=== PATIENT | female | born 1970 | race Caucasian/White ===

== ENCOUNTER 2017-03-04 21:35 | Emergency (ER) | payer OTHER, BC ==
[2017-03-04 21:53] VITALS: BP 126/73; PULSE 86; TEMP 98.5; BMI 29.8
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
[2017-03-04] MEDS ORDERED: KETOROLAC TROMETHAMINE 60 MG/2 ML VIAL IM ONE (23:07)
[2017-03-04] MEDS ORDERED: KETOROLAC TROMETHAMINE 60 MG/2 ML VIAL ONE (23:14)
--- NOTE | 2017-03-05 08:03 | PDOC ---
*Physical Exam - Vital Signs Last Vital Signs Temp Pulse Resp BP Pulse Ox 98.5 F 86 16 126/73 100 03/04/17 21:41 03/04/17 21:41 03/04/17 21:41 03/04/17 21:41 03/04/17 21:41 ED Treatment Course - ADDITIONAL ORDERS Additional order review: Laboratory Results 03/04/17 22:30 Urine HCG, Qual Negative - Medications Given in the ED: ED Medications Discontinued Medications Generic Name Dose Route Start Last Admin Trade Name Marielle PRN Reason Stop Dose Admin Ketorolac Tromethamine 60 mg 03/04/17 23:07 03/04/17 23:18 Toradol Injection - IM 03/04/17 23:08 60 mg ONCE ONE Administration Progress Note - Progress Note Progress Note: Spoke to pt to return for more cervical spine views. Pt is still in pain. Radiologist states study is in complete. Pt will return. *DC/Admit/Observation/Transfer Diagnosis at time of Disposition: Cervical strain Qualifiers: Encounter type: initial encounter Qualified Code(s): S16.1XXA - Strain of muscle, fascia and tendon at neck level, initial encounter - Discharge Dispostion Disposition: HOME Condition at time of disposition: Stable - Prescriptions Prescriptions: Ibuprofen [Motrin -] 600 mg PO TID #20 tablet Alprazolam [Xanax] 0.5 mg PO BID PRN #4 tablet MDD 2 tabs PRN Reason: Anxiety - Referrals - Patient Instructions Printed Discharge Instructions: DI for Cervical Muscle Strain Additional Instructions: ice for 24 hours, then local warmth to area soft collar as needed motrin 600mg up to 3 times a day as needed for pain (take with food) Xanax 0.5 mg up to twice a day for anxiety Return to ER if you have severe pain/persistent headache/nausea or lightheadedness Follow-up with your spine surgeon if you have persistent neck pain Follow-up with Dr. Valencia within the next week - Post Discharge Activity
== END 2017-03-04 23:25 | disposition home or self-care (01) ==
LOC: FER 21:35
PROC: 3E0233Z Introduction of Anti-inflammatory into Muscle, Percutaneous Approach (ICD-10-PCS; principal; 2017-03-04)
DX: S16.1XXA Strain of muscle, fascia and tendon at neck level, initial encounter (principal); V43.52XA Car driver injured in collision with other type car in traffic accident, initial encounter; Y93.89 Activity, other specified; Y92.410 Unspecified street and highway as the place of occurrence of the external cause; K21.9 Gastro-esophageal reflux disease without esophagitis; E03.9 Hypothyroidism, unspecified; E55.9 Vitamin D deficiency, unspecified
CPT/HCPCS: 72050-TC; 84703; 99281-25

== ENCOUNTER 2017-04-16 01:41 | Emergency (ER) | payer BC ==
--- NOTE | 2017-04-16 01:45 | PDOC ---
History of Present Illness - General Chief Complaint: Pain, Acute Stated Complaint: ABDOMINAL PAIN X 1 1/2 WEEKS Time Seen by Provider: 04/16/17 01:44 - History of Present Illness Initial Comments: This 46-year-old woman , s/p abdominoplasty 12/26/[address] Gordon, presents with approximately one week history of discomfort and swelling below her lower abdominal incision. Patient denies trauma or overuse involving abdominal muscles prior to development of the swelling. She states that she is relatively comfortable at rest but with movement she has pain in the area. She denies fever/chills, redness or increased warmth to the area of swelling. Patient states that she periodically needed drainage of fluid accumulation after her procedure but it has not had the need in several weeks. She has not used her abdominal binder in the last month after being told by Dr. Gordon to discontinue wearing. She attempted to call Dr. Gordon last week but was unable to contact him and then went away for vacation for a few days. Patient is currently on omeprazole for GERD; she was placed on omeprazole by her PMD a few weeks ago because of increased epigastric and mid chest pain after eating. Past History - Past Medical History Allergies/Adverse Reactions: Allergies Allergy/AdvReac Type Severity Reaction Status Date / Time No Known Allergies Allergy Verified 04/16/17 01:43 Home Medications: Ambulatory Orders Levothyroxine [Synthroid -] 50 mcg PO DAILY@0700 tablet 07/05/16 Phentermine HCl 37.5 mg PO DAILY 12/20/16 Omeprazole 20 mg PO DAILY 04/16/17 Anemia: (VIT. D DEFICIENCY) Asthma: No Cancer: No Cardiac Disorders: No CVA: No COPD: No CHF: No Dementia: No Diabetes: No GI Disorders: Yes (GERD) Disorders: No HTN: No Hypercholesterolemia: No Liver Disease: No Seizures: No Thyroid Disease: Yes - Surgical History Abdominal Surgery: Yes (Laparoscopic Right Oopherectomy) Appendectomy: Yes Cardiac Surgery: No Cholecystectomy: No Lung Surgery: No Neurologic Surgery: Yes (LUMBAR DISCECTOMY) Orthopedic Surgery: Yes (LAMINECTOMY,Spinal Fusion 08/2016) - Immunization History Immunization Up to Date: Yes - Psycho/Social/Smoking Cessation Hx Anxiety: No Suicidal Ideation: No Smoking Status: No Smoking History: Never smoked Years of Tobacco Use: 0 Have you smoked in the past 12 months: No Number of Cigarettes Smoked Daily: 0 Cigars Per Day: 0 Hx Alcohol Use: No Drug/Substance Use Hx: No Substance Use Type: None Hx Substance Use Treatment: No Review of Systems - Review of Systems Able to Perform ROS?: Yes Comments:: 12 point review of systems is negative except for what is noted in the history of present illness *Physical Exam - Physical Exam Comments: GENERAL: Adult female, alert and oriented 3, in no acute distress HEAD: Normal with no signs of trauma. EYES: PERRLA, EOMI, sclera anicteric, conjunctiva clear. ENT: Ears normal, nares patent, oropharynx clear without exudates. Dry mucous membranes. NECK: Normal range of motion, supple without lymphadenopathy, JVD, or masses. LUNGS: Breath sounds equal, clear to auscultation bilaterally. No wheezes, and no crackles. HEART:Regular rate and rhythm, normal S1 and S2 without murmur, rub or gallop. ABDOMEN:.normal bowel sounds No guarding or rebound.No masses No distention. Well-healed horizontal lower abdominal incision; edema, moderately tender proximal to length of incision (left side > right) No erythema/fluctuance/increased warmth of the area of edema; no discharge noted from incision EXTREMITIES: Normal range of motion, no edema. No clubbing or cyanosis. No erythema, or tenderness. NEUROLOGICAL: Cranial nerves II through XII grossly intact. Normal speech. No focal neurological deficits. MUSCULOSKELETAL: Back non-tender to palpation, no CVA tenderness SKIN: Warm, Dry, normal turgor, no rashes or lesions noted. Medical Decision Making - Medical Decision Making 46-year-old woman who is 3-1/2 months s/p abdominoplasty presents with a week of mildly to moderately tender, edematous area proximal to her lower abdominal incision. This area extends the length of the incision but is somewhat more tender and more prominent on the left side of the incision. The incision itself is intact, appears to be healing well and without drainage. There is no area that appears to be acutely inflamed: No erythema/no increased warmth. There is no fluctuance palpable. Clinical presentation most consistent with small collection of fluid in the subcutaneous tissues. Since there is no evidence of cellulitis/abscess, no antibiotics will be started. The patient has been advised to call Dr. Gordon's office in the morning to arrange follow-up in the near future. Meanwhile, she should wear her abdominal binder. Toradol 60 mg IM will be given now. *DC/Admit/Observation/Transfer Diagnosis at time of Disposition: S/P abdominoplasty - Discharge Dispostion Disposition: HOME Condition at time of disposition: Stable - Referrals Referrals: Feliz Gordon MD [Primary Care Provider] - Call tomorrow - Patient Instructions Additional Instructions: Wear abdominal binder until seen by Dr. Gordon Call Dr. Gordon's office tomorrow for follow-up within the next 2 days Take GERD medications as prescribed Return to ER immediately if you have fever/chills or area becomes red/warm to touch
[2017-04-16 01:52] VITALS: BP 125/71; PULSE 86; TEMP 98.3; BMI 32.8
[2017-04-16] MEDS ORDERED: KETOROLAC TROMETHAMINE 60 MG/2 ML VIAL IM ONE (02:01)
[2017-04-16] MEDS ORDERED: KETOROLAC TROMETHAMINE 60 MG/2 ML VIAL ONE (02:02)
== END 2017-04-16 02:11 | disposition home or self-care (01) ==
LOC: FER 01:41
PROC: 3E0233Z Introduction of Anti-inflammatory into Muscle, Percutaneous Approach (ICD-10-PCS; principal; 2017-04-16)
DX: Z98.890 Other specified postprocedural states (principal); K21.9 Gastro-esophageal reflux disease without esophagitis; E07.9 Disorder of thyroid, unspecified
CPT/HCPCS: 99281-25

== ENCOUNTER 2017-12-27 23:35 | Emergency (ER) | payer BC ==
[2017-12-27 23:41] VITALS: BP 122/89; PULSE 98; TEMP 98.1; BMI 32.5
--- NOTE | 2017-12-28 00:15 | PDOC ---
History of Present Illness - General Chief Complaint: Pain, Acute Stated Complaint: LUQ PAIN Time Seen by Provider: 12/27/17 23:38 - History of Present Illness Initial Comments: 12/28/17 00:35 This 47-year-old woman with a history of hypothyroidism, chronic back pain/ multiple back procedures and GERD presents with a one-day history of left-sided abdominal pain. Patient states that she awakened with pain of the left upper quadrant, worse with breathing and movement. She denies nausea/vomiting, fever/ chills. She has had decreased appetite today . Last bowel movement was yesterday and was normal (patient has a history of chronic constipation). No history of trauma/overuse of abdominal muscles. No history of cough, shortness of breath, chest wall trauma. Patient states that she had a colonoscopy 2 years ago and was told that was all normal. The patient has Percocet at home for her chronic back pain: She took a tablet earlier for the abdominal pain; minimal relief of abdominal pain obtained. Past History - Past Medical History Allergies/Adverse Reactions: Allergies Allergy/AdvReac Type Severity Reaction Status Date / Time No Known Allergies Allergy Verified 04/16/17 01:43 Home Medications: Ambulatory Orders Levothyroxine [Synthroid -] 50 mcg PO DAILY@0700 tablet 07/05/16 Phentermine HCl 37.5 mg PO DAILY 12/20/16 Omeprazole 20 mg PO DAILY 04/16/17 Oxycodone HCl/Acetaminophen [Percocet 10-325 mg Tablet] 1 each PO PRN 12/28/17 Anemia: (VIT. D DEFICIENCY) Asthma: No Cancer: No Cardiac Disorders: No CVA: No COPD: No CHF: No Dementia: No Diabetes: No GI Disorders: Yes (GERD) Disorders: No HTN: No Hypercholesterolemia: No Liver Disease: No Seizures: No Thyroid Disease: Yes - Surgical History Abdominal Surgery: Yes (Laparoscopic Right Oopherectomy) Appendectomy: Yes Cardiac Surgery: No Cholecystectomy: No Lung Surgery: No Neurologic Surgery: Yes (LUMBAR DISCECTOMY) Orthopedic Surgery: Yes (LAMINECTOMY,Spinal Fusion 08/2016) - Immunization History Immunization Up to Date: Yes - Suicide/Smoking/Psychosocial Hx Smoking Status: No Smoking History: Never smoked Years of Tobacco Use: 0 Have you smoked in the past 12 months: No Number of Cigarettes Smoked Daily: 0 Cigars Per Day: 0 Information on smoking cessation initiated: No Hx Alcohol Use: No Drug/Substance Use Hx: No Substance Use Type: None Hx Substance Use Treatment: No Review of Systems - Review of Systems Able to Perform ROS?: Yes Comments:: 12 point review of systems is negative except for what is noted in the history of present illness *Physical Exam - Vital Signs Last Vital Signs Temp Pulse Resp BP Pulse Ox 98.1 F 98 H 14 122/89 100 12/27/17 23:39 12/27/17 23:39 12/27/17 23:39 12/27/17 23:39 12/27/17 23:39 - Physical Exam Comments: GENERAL: Adult female, alert and oriented 3, in no acute distress HEAD: Normal with no signs of trauma. EYES: PERRLA, EOMI, sclera anicteric, conjunctiva clear. ENT: Ears normal, nares patent, oropharynx clear without exudates. Dry mucous membranes. NECK: Normal range of motion, supple without lymphadenopathy, JVD, or masses. LUNGS: Breath sounds equal, clear to auscultation bilaterally. No wheezes, and no crackles. HEART:Regular rate and rhythm, normal S1 and S2 without murmur, rub or gallop. ABDOMEN:.normal bowel sounds. Marked left upper quadrant/left mid abdominal tenderness.minimal rebound tenderness . No masses No distention. EXTREMITIES: Normal range of motion, no edema. No clubbing or cyanosis. No erythema, or tenderness. NEUROLOGICAL: Cranial nerves II through XII grossly intact. Normal speech. No focal neurological deficits. MUSCULOSKELETAL: Back non-tender to palpation, no CVA tenderness SKIN: Warm, Dry, normal turgor, no rashes or lesions noted. ED Treatment Course - LABORATORY CBC & Chemistry Diagram: 12/28/17 00:45 12/28/17 00:45 Progress Note - Progress Note Progress Note: Laboratory evaluation is essentially normal. Abdominal/pelvic CT performed to rule out acute process such as acute diverticulitis/UPJ stone. Preliminary interpretation by Imaging business continuity planner reveals no evidence of acute process in the abdomen or pelvis. Because patient has had an abdominoplasty within the last year, it is possible that pain is of abdominal wall origin. She is had significant relief in her pain after IV Toradol and continues to be more comfortable than when she presented to the ER. She has not developed any new symptoms. Patient will be discharged with instructions to apply warm compresses to her abdominal wall around the area of pain; ibuprofen/acetaminophen as/naproxen can be used as needed for pain. She should return if she has persistent severe pain or develops fever/vomiting. Otherwise, she should follow-up with Dr. martell within the next several days. *DC/Admit/Observation/Transfer Diagnosis at time of Disposition: Abdominal wall pain in left upper quadrant - Discharge Dispostion Disposition: HOME Condition at time of disposition: Stable - Referrals Referrals: Wendy Valencia MD [Primary Care Provider] - 24 hours - Patient Instructions Printed Discharge Instructions: DI for Abdominal Pain-Adult Additional Instructions: Local warmth to abdominal wall Continue naproxen/acetaminophen/ibuprofen as needed for pain Return to ER if you have vomiting or fever Follow-up with within for 24 hours if you have persistent mild pain - Post Discharge Activity
[2017-12-28] MEDS ORDERED: KETOROLAC TROMETHAMINE 30 MG/1 ML VIAL IVPUSH ONE (00:16)
[2017-12-28] MEDS ORDERED: SODIUM CHLORIDE 1,000 ML IV STA (00:16)
[2017-12-28] MEDS ORDERED: KETOROLAC TROMETHAMINE 30 MG/1 ML VIAL ONE (00:21)
[2017-12-28 01:48] LABS: BASO % 1.1 % (0-2.0); EOS % 2.2 % (0-4.5); HEMATOCRIT 32.5 % (32.4-45.2); HEMOGLOBIN 10.5 GM/dL (10.7-15.3); LYMPH % 26.6 % (8-40); MCH 24.1 pg (25.7-33.7); MCHC 32.4 g/dl (32.0-36.0); MEAN CELL VOLUME 74.3 fl (80-96); MEAN PLT VOLUME 8.8 fl (7.5-11.1); MONO % 7.9 % (3.8-10.2); NEUT % 62.2 % (42.8-82.8); PLATELET COUNT 359 K/MM3 (134-434); RBC 4.38 M/mm3 (3.60-5.2); RDW 17.3 % (11.6-15.6); WHITE BLOOD COUNT 8.3 K/mm3 (4.0-10.0)
[2017-12-28 02:12] LABS: URINE APPEARANCE CLEAR; URINE BILIRUBIN NEGATIVE (NEGATIVE); URINE BLOOD NEGATIVE (NEGATIVE); URINE COLOR YELLOW; URINE GLUCOSE (UA) NEGATIVE (NEGATIVE); URINE KETONE TRACE (NEGATIVE); URINE LEUK ESTERASE NEGATIVE (NEGATIVE); URINE NITRITE NEGATIVE (NEGATIVE)
[2017-12-28 02:20] LABS: ALBUMIN 4.1 g/dl (3.4-5.0); ALK PHOS 108 U/L (45-117); ANION GAP 11 (8-16); BILIRUBIN,TOTAL 0.4 mg/dL (0.2-1.0); BLOOD UREA NITROGEN 18 mg/dL (7-18); CALCIUM 8.7 mg/dL (8.5-10.1); CHLORIDE 103 mmol/L (98-107); CO2 26 mmol/L (21-32); CREATININE 0.7 mg/dL (0.55-1.02); GLUCOSE,RANDOM 98 mg/dL (74-106); POTASSIUM 3.6 mmol/L (3.5-5.1); SGOT/AST 16 U/L (15-37); SGPT/ALT 34 U/L (12-78); SODIUM 140 mmol/L (136-145)
[2017-12-28 02:21] LABS: URINE PROTEIN 1+ (NEGATIVE)
[2017-12-28 02:23] LABS: EPI CELLS RARE /HPF (FEW); URINE BACTERIA RARE /hpf (NONE SEEN); URINE HYALINE CAST 7 /lpf; URINE MUCUS MANY
[2017-12-28] MEDS ORDERED: KETOROLAC TROMETHAMINE 15 MG/ML VIAL IVPUSH ONE (03:23)
[2017-12-28] MEDS ORDERED: KETOROLAC TROMETHAMINE 15 MG/ML VIAL ONE (03:24)
== END 2017-12-28 03:29 | disposition home or self-care (01) ==
LOC: FER 23:35
PROC: 3E0337Z Introduction of Electrolytic and Water Balance Substance into Peripheral Vein, Percutaneous Approach (ICD-10-PCS; principal; 2017-12-27)
PROC: 3E0333Z Introduction of Anti-inflammatory into Peripheral Vein, Percutaneous Approach (ICD-10-PCS; 2017-12-27)
DX: R10.12 Left upper quadrant pain (principal)
CPT/HCPCS: 36415; 74176-TC; 80053; 81003; 81015; 84703; 85025; 99283-25; J7030

== ENCOUNTER 2018-01-25 05:14 | Day surgery (SDC) | payer BC ==
[2018-01-24 13:12] VITALS: BMI 33.7
[2018-01-25 09:15] VITALS: TEMP 98.1
[2018-01-25 13:37] VITALS: BP 129/74; PULSE 78
== END 2018-01-25 12:50 | disposition home or self-care (01) ==
LOC: JASU-SURG 05:14
PROVIDERS: ATTEND Obstetrics & Gynecology
PROC: 0U5B8ZZ Destruction of Endometrium, Via Natural or Artificial Opening Endoscopic (ICD-10-PCS; principal; 2018-01-25)
DX: N92.0 Excessive and frequent menstruation with regular cycle (principal); D64.9 Anemia, unspecified
CPT/HCPCS: 84703; 94760

== ENCOUNTER 2018-03-04 14:00 | Emergency (ER) | payer BC ==
--- NOTE | 2018-03-04 14:14 | PDOC ---
History of Present Illness - General History Source: Patient Exam Limitations: No Limitations - History of Present Illness Initial Comments: 03/04/18 14:30 The patient is a 47 year old female, with a significant past medical history of hypothyroidism, chronic back pain/multiple back procedures, and GERD, who presents to the emergency department with, 3 days of sudden onset neck pain. She describes her pain as constant, radiating to her ear, and localized to her left side. The patient reports decreased range of motion. She reports taking Motrin and Aleve with minimal relief. She believes the symptoms onset due to her air conditioner. She reports an associated mild sore throat. She denies any recent injury. She denies recent fevers, chills, headache or dizziness. She denies recent nausea, vomit, diarrhea or constipation. She denies recent dysuria, frequency, urgency or hematuria. She denies recent chest pain or shortness of breath. Allergies: NKA Social history: Nonsmoker. Denies EtOH use and recreational drug use. Primary Care Physician: Dr. Valencia <Michael Lin - Last Filed: 03/04/18 14:30> <Kenji Randle - Last Filed: 03/04/18 14:34> - General Chief Complaint: Pain Stated Complaint: NECK, LEFT EAR PAIN Time Seen by Provider: 03/04/18 14:13 Past History <Michael Lin - Last Filed: 03/04/18 14:30> - Past Medical History Anemia: (VIT. D DEFICIENCY) Asthma: No Cancer: No Cardiac Disorders: No CVA: No COPD: No CHF: No Dementia: No Diabetes: No GI Disorders: Yes (GERD) Disorders: No HTN: No Hypercholesterolemia: No Liver Disease: No Seizures: No Thyroid Disease: Yes - Surgical History Abdominal Surgery: Yes (Laparoscopic Right Oopherectomy) Appendectomy: Yes Cardiac Surgery: No Cholecystectomy: No Lung Surgery: No Neurologic Surgery: Yes (LUMBAR DISCECTOMY) Orthopedic Surgery: Yes (LAMINECTOMY,Spinal Fusion 08/2016) - Immunization History Immunization Up to Date: Yes - Suicide/Smoking/Psychosocial Hx Smoking Status: No Smoking History: Never smoked Years of Tobacco Use: 0 Have you smoked in the past 12 months: No Number of Cigarettes Smoked Daily: 0 Cigars Per Day: 0 Hx Alcohol Use: No Drug/Substance Use Hx: No Substance Use Type: None Hx Substance Use Treatment: No <Kenji Randle - Last Filed: 03/04/18 14:34> - Past Medical History Allergies/Adverse Reactions: Allergies Allergy/AdvReac Type Severity Reaction Status Date / Time No Known Allergies Allergy Verified 03/04/18 14:08 Home Medications: Ambulatory Orders Levothyroxine [Synthroid -] 50 mcg PO DAILY@0700 tablet 07/05/16 Phentermine HCl 37.5 mg PO DAILY 12/20/16 Cyclobenzaprine HCl [Flexeril 10 mg] 10 mg PO TID PRN #9 tablet 03/04/18 Ibuprofen [Motrin -] 600 mg PO QID PRN 03/04/18 Rabeprazole Sodium [Aciphex] 20 mg PO DAILY 03/04/18 Review of Systems - Review of Systems Constitutional: No: Symptoms Reported, See HPI, Chills, Diaphoresis, Fever, Loss of Appetite, Malaise, Night Sweats, Weakness, Weight Stable, Unintentional Wgt. Loss, Unexplained wgt Loss, Other HEENTM: Yes: Ear Pain, Throat Pain (Mild.) Respiratory: No: Symptoms reported, See HPI, Cough, Orthopnea, Shortness of Breath, SOB with Exertion, SOB at Rest, Stridor, Wheezing, Productive cough, Hemoptysis, Other Cardiac (ROS): No: Symptoms Reported, See HPI, Chest Pain, Edema, Irregular Heart Rate, Lightheadedness, Palpitations, Syncope, Chest Tightness, Other ABD/GI: No: Symptoms Reported, See HPI, Abdominal Distended, Abd. Pain w/ defecation, Blood Streaked Bowels, Constipated, Diarrhea, Difficulty Swallowing , Nausea, Poor Appetite, Poor Fluid Intake, Rectal Bleeding, Vomiting, Indigestion, Abdominal cramping, Tarry Stools, Other : No: Symptoms Reported, See HPI, Burning, Dysuria, Discharge, Frequency, Flank Pain, Hematuria, Incontinence, Pain, Urgency, Testicular Mass, Testicular Swelling, Lesions, Testicular Pain, Other Integumentary: No: Symptoms Reported, See HPI, Bruising, Change in Color, Change in Hair/Nails, Dryness, Erythema, Flushing, Lesions, Lumps, Pallor, Pruritus, Rash, Sweating, Other Neurological: No: Symptoms reported, See HPI, Headache, Numbness, Paresthesia, Pre-Existing Deficit, Seizure, Tingling, Tremors, Weakness, Unsteady Gait, Ataxia, Dizziness, Other Psychiatric: No: Anxiety, Depression, Frequent Crying, Stressors, Sleep Pattern Change, Emotional Problems, Mood Swings, Change in Appetite, Other Endocrine: No: Symptoms Reported, See HPI, Excessive Sweating, Flushing, Intolerance to Cold, Intolerance to Heat, Increased Hunger, Increased Thirst, Increased Urine, Unexplained Weight Gain, Unexplained Weight Loss, Change in Weight, Other Hematologic/Lymphatic: No: Symptoms Reported, See HPI, Anemia, Blood Clots, Easy Bleeding, Easy Bruising, Bleeding Diathesis, Lymph Node Abnormalities, Swollen Glands, Other All Other Systems: Reviewed and Negative <Michael Lin - Last Filed: 03/04/18 14:30> *Physical Exam - Vital Signs Last Vital Signs Temp Pulse Resp BP Pulse Ox 99 F 98 H 18 122/69 99 03/04/18 14:00 03/04/18 14:00 03/04/18 14:00 03/04/18 14:00 03/04/18 14:00 - Physical Exam Comments: 03/04/18 14:22 General Appearance: Yes: Appropriately Dressed, Nourished. No: Apparent Distress, Disheveled, Mild Distress, Moderate Distress, Severe Distress, Alcohol on Breath, Intoxicated, Cachetic, Obese, Thin, Other HEENT: positive: EOMI, DOMENICO, Normal ENT Inspection, Normal Voice, TMs Normal, Pharynx Normal. negative: Symmetrical, Pale Conjunctivae, Photophobia, Scleral Icterus (R), Scleral Icterus (L), Muffled/Hoarse voice, Pharyngeal Erythema, Tonsillar Exudate, Tonsillar Erythema, Nasal Congestion, Rhinorrhea, Sinus Tenderness, Orbits, Hearing Decreased, Hearing Grossly Normal, TM Bulging, TM Dull, TM Erythema, Lesions, Cazares, Excessive drooling, Thrush, Other (+)Neck: positive: Tenderness to the left paracervical muscle. Decreased range of motion. Trachea midline, Normal Thyroid, Supple. negative: No spinous tenderness. No meningeal signs. Rigid, Carotid bruit, Stridor, Lymphadenopathy ( R), Lymphadenopathy (L), Rigidity, Tender lateral, Tender midline, Thyromegaly, Other Respiratory/Chest: positive: Lungs Clear, Normal Breath Sounds. negative: Accessory Muscle Use, Chest Tender, Respiratory Distress, Labored Respiration, Rapid RR, Decreased Breath Sounds, Paradoxal Breathing, Crackles, Rales, Rhonchi , Stridor, Wheezing, Dullness, Hyperresonant, Plerual Rub, Other Cardiovascular: positive: Regular Rate, Regular Rhythm, S1, S2. negative: Edema , JVD, Murmur, Bradycardia, Tachycardia, Diastolic Murmur, Systolic Murmur, Gallop/S3, Gallop/S4, Irregularly Irregular, Irregular, Other Vascular Pulses: Femoral (R): 4+, Femoral (L): 4+, Carotid (R): 4+, Carotid (L) : 4+, Dorsalis-Pedis (R): 4+, Doralis-Pedis (L): 4+ Gastrointestinal/Abdominal: positive: Normal Bowel Sounds, Flat, Soft. negative : Tender, Organomegaly, Pulsatile Mass, Increased Bowel Sounds, Decreased BS, Protuberent, Distended, Guarding, Rebound, Tenderness, Hernia, Mass, Hepatomegaly, Spleenomegaly, Other Lymphatic: negative: Adenopathy, Tenderness, Other Musculoskeletal: positive: Normal Inspection. negative: CVA Tenderness, CVA Tenderness (R), CVA Tenderness (L), Vertebral Tenderness, Other Extremity: positive: Normal Capillary Refill, Normal Inspection, Normal Range of Motion. negative: Tender, Pelvis Stable, Coldness, Cyanosis, Delayed Capillary Refill, Pedal Edema, Swelling, Calf Tenderness, Erythema, Inflammation , Other Integumentary: positive: Normal Color, Dry, Warm. negative: Cyanotic, Erythema , Jaundice, Mottled, Pale, Cold, Clammy, Diaphoresis, Moist, Hives, Petechiae, Rash, Swelling, Ecchymosis, Bruising, Other Neurologic: positive: pharmacology associate II-XII NML intact, Fully Oriented, Alert, Normal Mood/ Affect, Normal Response, Motor Strength 5/5. negative: Abnormal Cranial NS, Respond to painful stimul, Responsive, EOM Palsy, Facial Droop, Numbness, Sensory Deficit, Finger to Nose, Confused, Disoriented, Depressed Affect, Babinski, Other <Michael Lin - Last Filed: 03/04/18 14:30> - Vital Signs Last Vital Signs Temp Pulse Resp BP Pulse Ox 99 F 98 H 18 122/69 99 03/04/18 14:00 03/04/18 14:00 03/04/18 14:00 03/04/18 14:00 03/04/18 14:00 <Kenji Randle - Last Filed: 03/04/18 14:34> ED Treatment Course - ADDITIONAL ORDERS Additional order review: 03/04/18 14:29 Pt appears to have a torticollis, pain on left side of paracervical muscles, with no spinous process tenderness. No meningeal signs noted, no fever, incontinence or procedures done. Vitals stable. Will treat with NSAID and Flexeril If worsen return to ER Pt is in agreement with plan 03/04/18 14:33 <Kenji Randle - Last Filed: 03/04/18 14:34> *DC/Admit/Observation/Transfer - Attestations Scribe Attestion: 03/04/18 14:24 Documentation prepared by Michael Lin, acting as medical assisting program director for Kenji Randle MD. <Michael Lin - Last Filed: 03/04/18 14:30> - Discharge Dispostion Decision to Admit order: No <Kenji Randle - Last Filed: 03/04/18 14:34> Diagnosis at time of Disposition: Torticollis - Discharge Dispostion Disposition: HOME Condition at time of disposition: Stable - Prescriptions Prescriptions: Cyclobenzaprine HCl [Flexeril 10 mg] 10 mg PO TID PRN #9 tablet PRN Reason: Pain - Referrals Referrals: Wendy Valencia MD [Primary Care Provider] - - Patient Instructions Printed Discharge Instructions: DI for Torticollis Additional Instructions: Ice, Motrin, rest Flexeril 10 mg 3x/day as needed If worsen return to ER - Post Discharge Activity
[2018-03-04 14:20] VITALS: BP 122/69; PULSE 98; TEMP 99; BMI 31.2
== END 2018-03-04 14:40 | disposition home or self-care (01) ==
LOC: FER 14:00
DX: M43.6 Torticollis (principal); E07.9 Disorder of thyroid, unspecified; K21.9 Gastro-esophageal reflux disease without esophagitis; E55.9 Vitamin D deficiency, unspecified
CPT/HCPCS: 99283-25

== ENCOUNTER 2018-11-04 20:22 | Emergency (ER) | payer OTHER ==
--- NOTE | 2018-11-04 20:29 | PDOC ---
History of Present Illness - History of Present Illness Initial Comments: The patient is a 48 year old female, with a significant past medical history of hypothyroidism, chronic back pain/multiple back procedures, GERD, endometriosis , and seizures who presents to the emergency department with back pain. She states her lower back pain radiates down her legs. She states that she took percocet around 5:30pm with no relief of symptoms. She denies any recent injury. She denies recent fevers, chills, headache or dizziness. She denies recent nausea, vomit, diarrhea or constipation. She denies recent dysuria, frequency, urgency or hematuria. She denies recent chest pain or shortness of breath. Allergies: NKA Social history: Nonsmoker. Denies EtOH use and recreational drug use. Primary Care Physician: Dr. Valencia PAST MEDICAL HISTORY: hypothyroidism, chronic back pain/multiple back procedures, GERD, endometriosis, and seizures PAST SURGICAL HISTORY: spinal fusion (2018), 3 micro lumbar laminectomies FAMILY HISTORY: no pertinent history SOCIAL HISTORY: Pt lives with family and is employed. MEDICATIONS: reviewed ROS General: No fevers or chills, no weakness, no weight loss HEENT: No change in vision. No sore throat, No ear pain Cardiovascular: No chest pain or shortness of breath Respiratory:No cough, or wheezing. Gastrointestinal: No nausea, vomiting, diarrhea or constipation, No rectal bleeding Genitourinary: No dysuria, hematuria, or frequency Musculoskeletal: +back pain Neurologic: No headache, vertigo, dizziness or loss of consciousness Psychiatric: No depression Skin: No rashes or easy bruising Endocrine: No increased thirst or abnormal weight change Allergic: No skin or latex allergy All other systems reviewed and normal PE GENERAL: The patient is awake, alert, and fully oriented, in no acute distress. HEAD: Normal with no signs of trauma. EYES: Pupils equal, round and reactive to light, extraocular movements intact, sclera anicteric, conjunctiva clear. EXTREMITIES: Normal range of motion, no edema. NEUROLOGICAL: Normal speech, normal gait. Back:Wellhead surgical scar over lower lumbar-upper sacral area with some tenderness to palpation, no erythema, no swelling over the area. Also some tenderness on palpation over right sciatic notch. Positive straight leg raise at 45 degrees on right and 90 on left. Neurovascularly intact. PSYCH: Normal mood, normal affect. SKIN: Warm, Dry, normal turgor, no rashes or lesions noted. <Na Rodriguez - Last Filed: 11/04/18 20:50> - General History Source: Patient Exam Limitations: No Limitations - History of Present Illness Initial Comments: 11/04/18 21:14 A portion of this note was documented by scribe services under my direction. I have reviewed the details of the note, within reason, and agree with the documentation with the following case summary and management plan written by me. Patient treated in the ED. Nursing notes are reviewed and incorporated into the medical decision-making. Vital signs reviewed. This is a 48-year-old female who comes in complaining of acute exacerbation of her chronic low back pain. Patient had some surgery approximately year ago and says her back is been much better until yesterday when it developed pain again. Patient said her pain is similar to what she had prior to the surgery and radiates down her right leg. Patient took some pain medication that she had at home without relief so came in for evaluation. Patient medicated with Decadron and Toradol and discharged home. Patient referred to her spine surgeon for follow-up <Stephane Molina I - Last Filed: 11/04/18 21:15> - General Chief Complaint: Pain, Acute Stated Complaint: BACK PAIN Time Seen by Provider: 11/04/18 20:24 Past History <Na Rodriguez - Last Filed: 11/04/18 20:50> - Past Medical History Anemia: (VIT. D DEFICIENCY) Asthma: No Cancer: No Cardiac Disorders: No CVA: No COPD: No CHF: No Dementia: No Diabetes: No GI Disorders: Yes (GERD) Disorders: No HTN: No Hypercholesterolemia: No Liver Disease: No Seizures: No Thyroid Disease: Yes - Surgical History Abdominal Surgery: Yes (Laparoscopic Right Oopherectomy) Appendectomy: Yes Cardiac Surgery: No Cholecystectomy: No Lung Surgery: No Neurologic Surgery: Yes (LUMBAR DISCECTOMY) Orthopedic Surgery: Yes (LAMINECTOMY,Spinal Fusion 08/2016) - Immunization History Immunization Up to Date: Yes - Suicide/Smoking/Psychosocial Hx Smoking Status: No Smoking History: Never smoked Years of Tobacco Use: 0 Have you smoked in the past 12 months: No Number of Cigarettes Smoked Daily: 0 Cigars Per Day: 0 Hx Alcohol Use: No Drug/Substance Use Hx: No Substance Use Type: None Hx Substance Use Treatment: No <Stephane Molina I - Last Filed: 11/04/18 21:15> - Past Medical History Allergies/Adverse Reactions: Allergies Allergy/AdvReac Type Severity Reaction Status Date / Time No Known Allergies Allergy Verified 11/04/18 20:24 Home Medications: Ambulatory Orders Levothyroxine [Synthroid -] 50 mcg PO DAILY@0700 tablet 07/05/16 Rabeprazole Sodium [Aciphex] 20 mg PO DAILY 03/04/18 Cholecalciferol (Vitamin D3) [Vitamin D3 -] 400 unit PO DAILY 11/04/18 Methocarbamol [Robaxin -] 750 mg PO QID #40 tablet 11/04/18 Naproxen 500 mg PO BID #14 tablet 11/04/18 Oxycodone HCl/Acetaminophen [Percocet 5-325 mg Tablet] 1 tab PO Q4H 11/04/18 Review of Systems - Review of Systems Comments:: 11/04/18 20:49 see HPI <Na Rodriguez - Last Filed: 11/04/18 20:50> *Physical Exam - Vital Signs Last Vital Signs Temp Pulse Resp BP Pulse Ox 97.9 F 90 16 142/82 98 11/04/18 20:32 11/04/18 20:32 11/04/18 20:32 11/04/18 20:32 11/04/18 20:32 - Physical Exam Comments: 11/04/18 20:49 see HPI <Na Rodriguez - Last Filed: 11/04/18 20:50> Moderate Sedation - Procedure Monitoring Vital Signs: Procedure Monitoring Vital Signs Temperature 97.9 F 11/04/18 20:32 Pulse Rate 90 11/04/18 20:32 Respiratory Rate 16 11/04/18 20:32 Blood Pressure 142/82 11/04/18 20:32 O2 Sat by Pulse Oximetry (%) 98 11/04/18 20:32 <Na Rodriguez - Last Filed: 11/04/18 20:50> *DC/Admit/Observation/Transfer - Attestations Scribe Attestion: 11/04/18 20:49 Documentation prepared by Na Rodriguez, acting as medical transcription radiology for Stephane Molina MD. <Paulo Rodriguezina - Last Filed: 11/04/18 20:50> - Discharge Dispostion Decision to Admit order: No <Stephane Molina Mary - Last Filed: 11/04/18 21:15> Diagnosis at time of Disposition: Sciatica of right side - Discharge Dispostion Disposition: HOME Condition at time of disposition: Stable - Prescriptions Prescriptions: Methocarbamol [Robaxin -] 750 mg PO QID #40 tablet Naproxen 500 mg PO BID #14 tablet - Referrals Referrals: Wendy Valencia MD [Primary Care Provider] - - Patient Instructions Additional Instructions: I sent a prescription to your pharmacy for a muscle relaxant, Robaxin. Take the Robaxin as often as 4 times a day as needed for pain and spasm. I also sent a prescription to your pharmacy for pain medication naproxen, take one tablet twice a day with food don't take on an empty stomach in addition to the naproxen you can also take 2 extra strength Tylenol as often as every 4-6 hours. Call your back surgeon in the morning and get an appointment for this week if possible, Return to the emergency department immediately with ANY new, persistent or worsening symptoms. Continue any medications as previously prescribed by your physician. You should follow up with your primary doctor as soon as possible regarding today's emergency department visit. . Please make sure your doctor reviews the results of your emergency evaluation. Thank you for coming to the Emergency Department today for your care. It was a pleasure to see you today. Please note that your evaluation is INCOMPLETE until you follow-up with your doctor. - Post Discharge Activity Forms/Work/School Notes: Back to Work
[2018-11-04 20:40] VITALS: BP 142/82; PULSE 90; TEMP 97.9; BMI 32.1
[2018-11-04] MEDS ORDERED: DEXAMETHASONE SOD PHOSPHATE 10 MG/1 ML VIAL IVPUSH ONE (20:41)
[2018-11-04] MEDS ORDERED: KETOROLAC TROMETHAMINE 60 MG/2 ML VIAL IM ONE (20:41)
[2018-11-04] MEDS ORDERED: DEXAMETHASONE SOD PHOSPHATE 10 MG/1 ML VIAL ONE (20:41)
[2018-11-04] MEDS ORDERED: KETOROLAC TROMETHAMINE 60 MG/2 ML VIAL ONE (20:41)
[2018-11-04] MEDS ORDERED: DEXAMETHASONE SOD PHOSPHATE 10 MG/1 ML VIAL IM ONE (20:47)
== END 2018-11-04 20:52 | disposition home or self-care (01) ==
LOC: FER 20:22
PROC: 3E0233Z Introduction of Anti-inflammatory into Muscle, Percutaneous Approach (ICD-10-PCS; principal; 2018-11-04)
PROC: 3E023GC Introduction of Other Therapeutic Substance into Muscle, Percutaneous Approach (ICD-10-PCS; 2018-11-04)
DX: M54.31 Sciatica, right side (principal); E07.9 Disorder of thyroid, unspecified; K21.9 Gastro-esophageal reflux disease without esophagitis
CPT/HCPCS: 99281-25; J1100

== ENCOUNTER 2018-11-14 21:38 | Emergency (ER) | payer OTHER ==
[2018-11-14 21:57] VITALS: TEMP 98.5; BMI 31.8
[2018-11-14 22:32] LABS: PH,URINE 7.5 (4.5-8); URINE APPEARANCE Clear; URINE BILIRUBIN Negative (NEGATIVE); URINE COLOR Yellow; URINE GLUCOSE (UA) Negative (NEGATIVE); URINE KETONE Trace (NEGATIVE); URINE LEUK ESTERASE Negative (NEGATIVE); URINE NITRITE Negative (NEGATIVE); URINE PROTEIN Negative (NEGATIVE)
--- NOTE | 2018-11-14 22:35 | PDOC ---
History of Present Illness - General Chief Complaint: Pain Stated Complaint: RLQ PAIN Time Seen by Provider: 11/14/18 21:40 - History of Present Illness Initial Comments: 11/15/18 00:59 48yo F hx ovarian cysts, endometriosis, , appendectomy presents to the ED with RLQ pain fo 24 hour. Pt reports non-radiating, dull pain that feels like prior ovarian cysts. Reprots pain became constant 6 hours hours prompting her to come to the ED. Denies associated N/V, dysuria, hematuria, frequency, constipation, fevers, chills, vaginal DC. Pt states LMP 2 weeks ago. Has taken home oxycodone with minimal relief of sxs. Pt had normal BM yesterday and is passing flatus. Past History - Past Medical History Allergies/Adverse Reactions: Allergies Allergy/AdvReac Type Severity Reaction Status Date / Time No Known Allergies Allergy Verified 11/04/18 20:24 Home Medications: Ambulatory Orders Levothyroxine [Synthroid -] 50 mcg PO DAILY@0700 tablet 07/05/16 Rabeprazole Sodium [Aciphex] 20 mg PO DAILY 03/04/18 Cholecalciferol (Vitamin D3) [Vitamin D3 -] 400 unit PO DAILY 11/04/18 Methocarbamol [Robaxin -] 750 mg PO QID #40 tablet 11/04/18 Naproxen 500 mg PO BID #14 tablet 11/04/18 Oxycodone HCl/Acetaminophen [Percocet 5-325 mg Tablet] 1 tab PO Q4H 11/04/18 Ketorolac Tromethamine [Toradol] 10 mg PO Q6H #10 tablet 11/15/18 Anemia: (VIT. D DEFICIENCY) Asthma: No Cancer: No Cardiac Disorders: No CVA: No COPD: No CHF: No Dementia: No Diabetes: No GI Disorders: Yes (GERD) Disorders: No HTN: No Hypercholesterolemia: No Liver Disease: No Seizures: No Thyroid Disease: Yes - Surgical History Abdominal Surgery: Yes (Laparoscopic Right Oopherectomy) Appendectomy: Yes Cardiac Surgery: No Cholecystectomy: No Lung Surgery: No Neurologic Surgery: Yes (LUMBAR DISCECTOMY) Orthopedic Surgery: Yes (LAMINECTOMY,Spinal Fusion 08/2016) - Immunization History Immunization Up to Date: Yes - Suicide/Smoking/Psychosocial Hx Smoking Status: No Smoking History: Never smoked Years of Tobacco Use: 0 Have you smoked in the past 12 months: No Number of Cigarettes Smoked Daily: 0 Cigars Per Day: 0 Hx Alcohol Use: No Drug/Substance Use Hx: No Substance Use Type: None Hx Substance Use Treatment: No Review of Systems - Review of Systems Comments:: 11/15/18 01:02 GENERAL/CONSTITUTIONAL: No fever or chills. No weakness. HEAD, EYES, EARS, NOSE AND THROAT: No change in vision. No ear pain or discharge. No sore throat. GASTROINTESTINAL: +RLQ abd pain. No nausea, vomiting, diarrhea or constipation. GENITOURINARY: No dysuria, frequency, or change in urination. CARDIOVASCULAR: No chest pain or shortness of breath. RESPIRATORY: No cough, wheezing, or hemoptysis. MUSCULOSKELETAL: No joint or muscle swelling or pain. No neck or back pain. SKIN: No rash NEUROLOGIC: No headache, vertigo, loss of consciousness, or change in strength/ sensation. ENDOCRINE: No increased thirst. No abnormal weight change. HEMATOLOGIC/LYMPHATIC: No anemia, easy bleeding, or history of blood clots. ALLERGIC/IMMUNOLOGIC: No hives or skin allergy. *Physical Exam - Vital Signs Last Vital Signs Temp Pulse Resp BP Pulse Ox 98.5 F 106 H 18 139/83 100 11/14/18 21:40 11/14/18 21:40 11/14/18 21:40 11/14/18 21:40 11/14/18 21:40 - Physical Exam Comments: 11/15/18 01:04 GENERAL: Awake, alert, and fully oriented, in no acute distress EYES: PERRLA, EOMI, sclera anicteric, conjunctiva clear ENT: Oropharynx clear without exudates. Moist mucosa LUNGS: Breath sounds equal, clear to auscultation bilaterally. No wheezes, and no crackles HEART: Regular rate and rhythm, normal S1 and S2, no murmurs, rubs or gallops ABDOMEN: Soft, +mild RLQ ttp, normoactive bowel sounds. No guarding, no rebound. No masses EXTREMITIES: Normal range of motion, no edema. No clubbing or cyanosis. No cords, erythema, or tenderness NEUROLOGICAL: Normal speech, cranial nerves intact, equal strength and sensation b/l SKIN: Warm, Dry, normal turgor, no rashes or lesions noted. Moderate Sedation - Procedure Monitoring Vital Signs: Procedure Monitoring Vital Signs Temperature 98.5 F 11/14/18 21:40 Pulse Rate 106 H 11/14/18 21:40 Respiratory Rate 18 11/14/18 21:40 Blood Pressure 139/83 11/14/18 21:40 O2 Sat by Pulse Oximetry (%) 100 11/14/18 21:40 ED Treatment Course - LABORATORY CBC & Chemistry Diagram: 11/14/18 22:50 11/14/18 22:50 - ADDITIONAL ORDERS Additional order review: Laboratory Results 11/14/18 11/14/18 22:00 22:00 Urine Color Yellow Urine Appearance Clear Urine pH 7.5 Ur Specific [place] 1.020 Urine Protein Negative Urine Glucose (UA) Negative Urine Ketones Trace Urine Blood Negative Urine Nitrite Negative Urine Bilirubin Negative Urine Urobilinogen 1.0 Ur Leukocyte Esterase Negative Urine HCG, Qual Negative Medical Decision Making - Medical Decision Making 11/15/18 00:50 48yo F hx ovarian cysts, endometriosis, , appendectomy presents to the ED with RLQ pain fo 24 hours. Vitals remarkable initially for elevated HR 106, on my rpt HR 84. Exam with comfortable appearing pt with RLQ ttp, no rebound or guarding. Labs unremarkable. UA/UPT neg. CTAP reveals 3cm R sided ovarian cyst and 2cm L sided ovarian cyst. Pt still getting her period regularly, possible mittel[place]mirtz vs ovarian cyst pain. No concern for torsion as pt is not having waves of significant pain. Pain has improved significantly with tylenol and toradol. 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 I answered all of the patient's questions. The patient was satisfied with the care received and felt comfortable with the discharge plan and treatment plan. The patient will call their primary care physician within 24 hours to arrange follow-up and will return to the Emergency Department with any new, persistent or worsening symptoms. 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 Take the toradol for pain every 6 hours as needed for pain. Do not take aleve, ibuprofen, motrin, advil, or any other NSAID while taking toradol. Return to the emergency department if you have any new, worsening, or concerning symptoms such as sudden worsening pain. - Post Discharge Activity Forms/Work/School Notes: Back to Work - Attestations Physician Attestion: 11/15/18 00:57 I, Dr. Mary Ivory MD, attest that this document has been prepared under my direction and personally reviewed by me in its entirety. I further attest, that it accurately reflects all work, treatment, procedures and medical decision -making performed by me.
[2018-11-14] MEDS ORDERED: ACETAMINOPHEN 1000 MG/100 ML VIAL (NON FORMULARY) IVPB ONE (22:38)
[2018-11-14] MEDS ORDERED: SODIUM CHLORIDE 1,000 ML IV STA (22:38)
[2018-11-14] MEDS ORDERED: ACETAMINOPHEN INJECTION 100 ML IVPB ONE (22:59)
[2018-11-14 23:08] LABS: BASO % 0.8 % (0-2.0); EOS % 1.9 % (0-4.5); HEMATOCRIT 34.8 % (32.4-45.2); HEMOGLOBIN 10.9 GM/dl (10.7-15.3); LYMPH % 24.2 % (8-40); MCH 25.3 pg (25.7-33.7); MCHC 31.2 g/dl (32.0-36.0); MEAN CELL VOLUME 81.2 fl (80-96); MEAN PLT VOLUME 8.3 fl (7.5-11.1); MONO % 10.4 % (3.8-10.2); NEUT % 62.7 % (42.8-82.8); PLATELET COUNT 315 K/MM3 (134-434); RBC 4.29 M/mm3 (3.60-5.2); RDW 15.7 % (11.6-15.6); WHITE BLOOD COUNT 9.4 K/mm3 (4.0-10.8)
[2018-11-14 23:26] LABS: ALBUMIN 3.7 g/dl (3.4-5.0); ALK PHOS 81 U/L (45-117); ANION GAP 6 MMOL/L (8-16); BILIRUBIN,TOTAL 0.6 mg/dl (0.2-1); BLOOD UREA NITROGEN 17 mg/dl (7-18); CALCIUM 8.7 mg/dl (8.5-10); CHLORIDE 105 mmol/L (98-107); CO2 24 mmol/L (21-32); CREATININE 0.6 mg/dl (0.55-1.3); GLUCOSE,RANDOM 116 mg/dl (74-106); POTASSIUM 3.5 mmol/L (3.5-5.1); SGOT/AST 22 U/L (15-37); SGPT/ALT 29 U/L (13-61); SODIUM 135 mmol/L (136-145); TOT PROT 6.6 g/dl (6.4-8.2)
[2018-11-15] MEDS ORDERED: KETOROLAC TROMETHAMINE 30 MG/1 ML VIAL ONE (00:18)
[2018-11-15 00:59] VITALS: BP 127/78; PULSE 89
== END 2018-11-15 01:08 | disposition home or self-care (01) ==
LOC: SUPCPDRO 21:38 → FER 21:38
PROC: 3E033NZ Introduction of Analgesics, Hypnotics, Sedatives into Peripheral Vein, Percutaneous Approach (ICD-10-PCS; principal; 2018-11-14)
PROC: 3E0337Z Introduction of Electrolytic and Water Balance Substance into Peripheral Vein, Percutaneous Approach (ICD-10-PCS; 2018-11-14)
DX: N83.202 Unspecified ovarian cyst, left side (principal); R10.31 Right lower quadrant pain; N83.201 Unspecified ovarian cyst, right side; E55.9 Vitamin D deficiency, unspecified; K21.9 Gastro-esophageal reflux disease without esophagitis
CPT/HCPCS: 36415; 74177-TC; 80053; 81003; 83690; 84703; 85025; 99282-25; J0131; J7030

== ENCOUNTER 2018-12-23 17:51 | Emergency (ER) | payer OTHER ==
[2018-12-23] MEDS ORDERED: MAG HYDROX/AL HYDROX/SIMETH 30 ML UNIT-DOSE CUP PO ONE (18:18)
--- NOTE | 2018-12-23 18:18 | PDOC ---
Rapid Medical Evaluation Time Seen by Provider: 12/23/18 18:15 Medical Evaluation: Allergies Allergy/AdvReac Type Severity Reaction Status Date / Time No Known Allergies Allergy Verified 11/04/18 20:24 12/23/18 18:15 I have performed a brief in-person evaluation of this patient. The patient presents with chief complaint of mid chest pain x 2 hours. Reports worse with deep breathing and moving right shoulder. Described pain as burning sensation. Also reports shortness of breath. Took no medication so far Pertinent physical exam findings NAD even and unlabored breathing, clear bilaterally non tender mid chest, pain exacerbated by movement I have ordered the following ekg, maalox The patient will proceed to the Ed for further evaluation Discharge Disposition - Diagnosis Chest pain - Referrals Referrals: Wendy Valencia MD [Primary Care Provider] - - Patient Instructions - Post Discharge Activity
[2018-12-23 18:19] VITALS: BP 120/82; PULSE 94; TEMP 98.3; BMI 31.2
[2018-12-23] MEDS ORDERED: MAG HYDROX/AL HYDROX/SIMETH 30 ML UNIT-DOSE CUP ONE (18:35)
--- NOTE | 2018-12-23 18:56 | PDOC ---
History of Present Illness - General Chief Complaint: Chest Pain Stated Complaint: Chest Pain Time Seen by Provider: 12/23/18 18:15 History Source: Patient Exam Limitations: No Limitations - History of Present Illness Initial Comments: 12/23/18 18:51 48 yo female pmh of GERD and hypothyroidsm presents to the ED with sudden onset CP today. Pt states she was walking in the grocery store around 4 pm when she felt sudden onset CP described as pressure in the substernal region, non radiating, made worse with deep breathing, laying flat and movement of her right arm, slightly relieved with sitting forward. Pt states this pain is very different from her past episodes of GERD due to the feeling of pressure. Denies N/V/F/C, diaphoresis, new back pain, abdominal pain, calf tenderness, F/C/N/V, changes in bowel or bladder habits Past History - Past Medical History Allergies/Adverse Reactions: Allergies Allergy/AdvReac Type Severity Reaction Status Date / Time No Known Allergies Allergy Verified 12/23/18 18:15 Home Medications: Ambulatory Orders Levothyroxine [Synthroid -] 50 mcg PO DAILY@0700 tablet 07/05/16 Rabeprazole Sodium [Aciphex] 20 mg PO DAILY 03/04/18 Oxycodone HCl/Acetaminophen [Percocet 5-325 mg Tablet] 1 tab PO Q4H PRN Phentermine HCl 37.5 mg PO DAILY 12/23/18 Anemia: (VIT. D DEFICIENCY) Asthma: No Cancer: No Cardiac Disorders: No CVA: No COPD: No CHF: No Dementia: No Diabetes: No GI Disorders: Yes (GERD) Disorders: No HTN: No Hypercholesterolemia: No Liver Disease: No Seizures: No Thyroid Disease: Yes - Surgical History Abdominal Surgery: Yes (Laparoscopic Right Oopherectomy) Appendectomy: Yes Cardiac Surgery: No Cholecystectomy: No Lung Surgery: No Neurologic Surgery: Yes (LUMBAR DISCECTOMY) Orthopedic Surgery: Yes (LAMINECTOMY,Spinal Fusion 08/2016) - Immunization History Immunization Up to Date: Yes - Suicide/Smoking/Psychosocial Hx Smoking Status: No Smoking History: Never smoked Years of Tobacco Use: 0 Have you smoked in the past 12 months: No Number of Cigarettes Smoked Daily: 0 Cigars Per Day: 0 Hx Alcohol Use: No Drug/Substance Use Hx: No Substance Use Type: None Hx Substance Use Treatment: No Review of Systems - Review of Systems Constitutional: No: Chills, Fever Respiratory: No: Cough, Shortness of Breath, Productive cough Cardiac (ROS): Yes: Chest Pain. No: Edema, Lightheadedness, Palpitations, Syncope ABD/GI: No: Constipated, Diarrhea, Nausea, Vomiting : No: Burning, Dysuria, Discharge, Frequency, Flank Pain Musculoskeletal: No: Back Pain Integumentary: No: Change in Color Neurological: No: Headache, Numbness, Paresthesia *Physical Exam - Vital Signs Last Vital Signs Temp Pulse Resp BP Pulse Ox 98.3 F 94 H 17 120/82 100 12/23/18 18:15 12/23/18 18:15 12/23/18 18:15 12/23/18 18:15 12/23/18 18:15 - Physical Exam General Appearance: Yes: Nourished, Appropriately Dressed, Mild Distress ( sitting up in bed satating when she lays back it hurts) HEENT: positive: EOMI, DOMENICO Neck: positive: Supple. negative: Carotid bruit Respiratory/Chest: positive: Lungs Clear, Normal Breath Sounds. negative: Respiratory Distress, Accessory Muscle Use, Crackles, Rales, Rhonchi, Stridor, Wheezing Cardiovascular: positive: Regular Rhythm, Regular Rate, S1, S2. negative: Edema , JVD, Murmur Vascular Pulses: Dorsalis-Pedis (R): 4+, Doralis-Pedis (L): 4+ Gastrointestinal/Abdominal: positive: Flat, Soft. negative: Distended, Guarding , Rebound, Tenderness Musculoskeletal: negative: CVA Tenderness Extremity: positive: Normal Capillary Refill, Normal Inspection Integumentary: positive: Normal Color, Dry, Warm Neurologic: positive: Fully Oriented, Alert, Normal Mood/Affect, Normal Response Moderate Sedation - Procedure Monitoring Vital Signs: Procedure Monitoring Vital Signs Temperature 98.3 F 12/23/18 18:15 Pulse Rate 94 H 12/23/18 18:15 Respiratory Rate 17 12/23/18 18:15 Blood Pressure 120/82 12/23/18 18:15 O2 Sat by Pulse Oximetry (%) 100 12/23/18 18:15 Heart Score/ECG Review - History History: Slightly suspicious - Electrocardiogram EKG: Normal - Age Age: 45-65 - Risk Factors Risk Factors Heart Score: No Hx Hypercholesterolemia, No Hx Hypertension, No Hx Diabetes, No Smoking History, No Positive family hx of cardiac disease, Yes Hx Obesity Based on the list above the patient has:: 1-2 risk factors - Troponin Troponin: </= normal limit - Score Heart Score - Total: 2 - ECG Intrepretation Rhythm: Regular Rhythm - Bantam Bantam: Normal ED Treatment Course - LABORATORY CBC & Chemistry Diagram: 12/23/18 19:00 12/23/18 19:00 - Medications Given in the ED: ED Medications Discontinued Medications Generic Name Dose Route Start Last Admin Trade Name Freq PRN Reason Stop Dose Admin Al Hydroxide/Mg Hydroxide 30 ml 12/23/18 18:18 12/23/18 18:37 Mylanta Oral Suspension - PO 12/23/18 18: 30 ml ONCE ONE Administration Medical Decision Making - Medical Decision Making 12/23/18 21:37 48 yo female presents to the ED with sudden onset CP while walking. No significant cardiac risk factors (heart score 2), PERC and Wells score 0. EKG show NSR without ST changes Vitals show mild tachy with consistent HR in the low 100s DDX INLT: ACS, PE, pericarditis, costochondritis Pt given tylenol, maalox, ranitidine and motrin without much improvement CBC, CMP, Trops, BNP and D dimer WNL CXR negative for acute path Pt requesting to go home and states she will see her PCP tmr Pt stable, NAD, ambulating without increased CP. Pt trop and D dimer negative, non concerning for ACS or PE at this time, likely MSK related pain Pt safe for DC home, understands DC instructions without questions *DC/Admit/Observation/Transfer Diagnosis at time of Disposition: Chest pain - Discharge Dispostion Disposition: HOME Condition at time of disposition: Stable Decision to Admit order: No - Referrals Referrals: Wendy Valencia MD [Primary Care Provider] - - Patient Instructions Printed Discharge Instructions: DI for Atypical Chest Pain Additional Instructions: Please make an appointment to see your primary doctor and see him in the next 48 hours for your chest pain. Take over the counter Motrin as needed for pain every 4-6 hours. Continue taking over the counter Zantac and Maalox for acid reflux along with your home dosed medications. Return to the ER for new or concerning symptoms including but not limited to: persistent chest pain especially with activity, shortness of breath, nausea/vomiting, high fevers. Thank you - Post Discharge Activity
[2018-12-23] MEDS ORDERED: ACETAMINOPHEN 325 MG TABLET (FP) PO ONE (18:57)
[2018-12-23] MEDS ORDERED: RANITIDINE HCL 150 MG TABLET (FP) PO ONE (18:57)
--- NOTE | 2018-12-23 19:03 | PDOC ---
Attending Attestation - HPI HPI: 12/23/18 19:21 The patient is a 48 year old female, with a significant past medical history of GERD and hypothyroidism who presents to the emergency department with sudden onset chest pain 3 hours ago. The patient states she was walking at [employer] at around 4pm at the onset of her symptoms. The patient describes the chest pain as pressure, non radiating, in the substernal region. The patient notes her pain is aggravated with heavy breathing and movement of the R shoulder and alleviated with sitting forward. The patient denies experiencing anything like this in the past. The patient denies any family history of ACS. The patient denies shortness of breath, headache or dizziness. The patient denies fever, chills, nausea, vomit, diarrhea or constipation. The patient denies dysuria, frequency, urgency and hematuria. Allergies: NKdA Past surgical history:Laparoscopic Right Oophorectomy, LUMBAR DISCECTOMY, LAMINECTOMY,Spinal Fusion (08/2016), and Appendectomy Social history: None reported PCP:Dr. Valencia - Physicial Exam PE: 12/23/18 19:23 GENERAL: Awake, alert, and fully oriented, in no acute distress HEAD: No signs of trauma EYES: PERRLA, EOMI, sclera anicteric, conjunctiva clear ENT: Auricles normal inspection, hearing grossly normal, nares patent, oropharynx clear without exudates. Moist mucosa NECK: Normal ROM, supple, no lymphadenopathy, JVD, or masses LUNGS: Breath sounds equal, clear to auscultation bilaterally. No wheezes, and no crackles HEART: Regular rate and rhythm, normal S1 and S2, no murmurs, rubs or gallops ABDOMEN: Soft, nontender, normoactive bowel sounds. No guarding, no rebound. No masses EXTREMITIES: Normal range of motion, no edema. No clubbing or cyanosis. No cords, erythema, or tenderness NEUROLOGICAL: Cranial nerves II through XII grossly intact. Normal speech, normal gait SKIN: Warm, Dry, normal turgor, no rashes or lesions noted. <Prasanna Webster - Last Filed: 12/23/18 19:21> - Resident Resident Name: Balaji Fuentes - ED Attending Attestation I have performed the following: I have examined & evaluated the patient, The case was reviewed & discussed with the resident, I agree w/resident's findings & plan, Exceptions are as noted - Medical Decision Making 12/23/18 22:01 negative troponin cxr napd d dimer negative chemistries unremarkable atypical chest pain plan follow up with Sonia <Brandy Alvarez - Last Filed: 12/23/18 22:01> Attestations - Attestations 12/23/18 19:23 Documentation prepared by Prasanna Webster, acting as medical assembly for Brandy Alvarez MD <Prasanna Webster - Last Filed: 12/23/18 19:21>
[2018-12-23 19:12] LABS: BASO % 1.2 % (0-2.0); EOS % 1.5 % (0-4.5); HEMATOCRIT 38.7 % (32.4-45.2); HEMOGLOBIN 13.2 GM/dL (10.7-15.3); MCH 27.9 pg (25.7-33.7); MCHC 34.1 g/dl (32.0-36.0); MEAN CELL VOLUME 81.9 fl (80-96); MEAN PLT VOLUME 8.5 fl (7.5-11.1); MONO % 8.2 % (3.8-10.2); NEUT % 68.1 % (42.8-82.8); PLATELET COUNT 291 K/MM3 (134-434); RBC 4.73 M/mm3 (3.60-5.2); RDW 17.2 % (11.6-15.6)
[2018-12-23] MEDS ORDERED: RANITIDINE HCL 150 MG TABLET (FP) ONE (19:31)
[2018-12-23] MEDS ORDERED: ACETAMINOPHEN 325 MG TABLET (FP) ONE (19:31)
[2018-12-23 19:52] LABS: ALBUMIN 3.9 g/dl (3.4-5.0); ALK PHOS 106 U/L (45-117); ANION GAP 8 MMOL/L (8-16); BILIRUBIN,TOTAL 0.3 mg/dL (0.2-1); BLOOD UREA NITROGEN 18 mg/dL (7-18); CALCIUM 8.5 mg/dL (8.5-10.1); CHLORIDE 106 mmol/L (98-107); CO2 25 mmol/L (21-32); CREATININE 0.8 mg/dL (0.55-1.3); GLUCOSE,RANDOM 105 mg/dL (74-106); N-TERMINAL BNP < 5.0 pg/ml (5-125); POTASSIUM 4.3 mmol/L (3.5-5.1); SGOT/AST 15 U/L (15-37); SGPT/ALT 30 U/L (13-61); SODIUM 138 mmol/L (136-145); TOT PROT 7.7 g/dl (6.4-8.2)
[2018-12-23] MEDS ORDERED: IBUPROFEN 400 MG TABLET (FP) PO ONE ×2 (21:08→21:21)
--- NOTE | 2018-12-24 10:43 | EKG ---
Test Reason : Blood Pressure : / mmHG Vent. Rate : 101 BPM Atrial Rate : 101 BPM P-R Int : 146 ms QRS Dur : 076 ms QT Int : 350 ms P-R-T Axes : 055 011 028 degrees QTc Int : 453 ms SINUS TACHYCARDIA OTHERWISE NORMAL ECG WHEN COMPARED WITH ECG OF 03-JUL-2016 16:45, NO SIGNIFICANT CHANGE WAS FOUND Confirmed by Perry Chin MD ([id number]) on 12/24/2018 10:42:45 AM Referred By: Confirmed By:Perry Chin MD
== END 2018-12-23 22:06 | disposition home or self-care (01) ==
LOC: JER 17:51
DX: R07.89 Other chest pain (principal); K21.9 Gastro-esophageal reflux disease without esophagitis; E03.9 Hypothyroidism, unspecified
CPT/HCPCS: 36415; 71046-TC-FY; 80053; 82550; 82553; 83880; 84484; 84703; 85025; 85379; 93005; 93010; 99283-25

== ENCOUNTER 2019-06-01 14:28 | Emergency (ER) | payer OTHER ==
[2019-06-01 14:45] VITALS: BP 145/79; PULSE 71; TEMP 98.6; BMI 31.7
--- NOTE | 2019-06-01 15:01 | PDOC ---
History of Present Illness - General Chief Complaint: Pain Stated Complaint: RIGHT SIDED DENTAL AND EAR PAIN Time Seen by Provider: 06/01/19 14:46 History Source: Patient, Significant Other Exam Limitations: No Limitations - History of Present Illness Initial Comments: 06/01/19 14:56 CHIEF COMPLAINT: Right cheek pain since yesterday HISTORY OF PRESENT ILLNESS: 49-year-old female with history of thyroid disease and no other significant medical history. Yesterday, she developed pain in the right cheek which gets worse when biting down on one of her right upper quadrant molars. When she bites down hard, the pain shoots to her right cheek. There is no fever or chills. There is no gum swelling. There is no pain inside the ear. There is no sore throat. REVIEW OF SYSTEMS: No fever or chills No headache No visual changes No ear discharge or pain inside the ears Positive right cheek pain Positive pain in the right upper molars when biting down with radiation to the right cheek No difficulty swallowing Past History - Past Medical History Allergies/Adverse Reactions: Allergies Allergy/AdvReac Type Severity Reaction Status Date / Time No Known Allergies Allergy Verified 06/01/19 14:29 Home Medications: Ambulatory Orders Levothyroxine [Synthroid -] 50 mcg PO DAILY@0700 tablet 07/05/16 Rabeprazole Sodium [Aciphex] 20 mg PO DAILY 03/04/18 Oxycodone HCl/Acetaminophen [Percocet 5-325 mg Tablet] 1 tab PO Q4H PRN #8 tablet MDD 4 06/01/19 Penicillin V Potassium [Pen Vee K -] 500 mg PO QID #28 tablet 06/01/19 Anemia: (VIT. D DEFICIENCY) Asthma: No Cancer: No Cardiac Disorders: No CVA: No COPD: No CHF: No Dementia: No Diabetes: No GI Disorders: Yes (GERD) Disorders: No HTN: No Hypercholesterolemia: No Liver Disease: No Seizures: No Thyroid Disease: Yes - Surgical History Abdominal Surgery: Yes (Laparoscopic Right Oopherectomy) Appendectomy: Yes Cardiac Surgery: No Cholecystectomy: No Lung Surgery: No Neurologic Surgery: Yes (LUMBAR DISCECTOMY, SPINAL FUSION) Orthopedic Surgery: Yes (LAMINECTOMY,Spinal Fusion 08/2016) - Immunization History Immunization Up to Date: Yes - Suicide/Smoking/Psychosocial Hx Smoking Status: No Smoking History: Never smoked Years of Tobacco Use: 0 Have you smoked in the past 12 months: No Number of Cigarettes Smoked Daily: 0 Cigars Per Day: 0 Information on smoking cessation initiated: No Hx Alcohol Use: No Drug/Substance Use Hx: No Substance Use Type: None Hx Substance Use Treatment: No *Physical Exam - Vital Signs Last Vital Signs Temp Pulse Resp BP Pulse Ox 98.6 F 71 16 145/79 98 06/01/19 14:29 06/01/19 14:29 06/01/19 14:29 06/01/19 14:29 06/01/19 14:29 - Physical Exam Comments: 06/01/19 14:58 GENERAL: The patient is awake, alert, and fully oriented, in no acute distress. She is placing her hand on her right cheek due to pain in the maxillary region. HEAD: Normal with no signs of trauma. EYES: Pupils equal, round and reactive to light, extraocular movements intact, sclera anicteric, conjunctiva clear. Orbits normal. ENT: Ears normal, TMs normal bilaterally, nares patent, nasal mucosa normal, oropharynx clear without exudates. Moist mucous membranes. DENTAL: No visible gum swelling, positive tender molars in the right upper quadrant. NECK: Normal range of motion, supple without lymphadenopathy, JVD, or masses. LUNGS: Breath sounds equal, clear to auscultation bilaterally. No wheezes, and no crackles. HEART: Regular rate and rhythm, normal S1 and S2 without murmur, rub or gallop. ABDOMEN: Soft, nontender, normoactive bowel sounds. No guarding, no rebound. No masses. EXTREMITIES: Normal range of motion, no edema. No clubbing or cyanosis. No cords, erythema, or tenderness. NEUROLOGICAL: Cranial nerves II through XII grossly intact. Normal speech, normal gait. PSYCH: Normal mood, normal affect. SKIN: Warm, Dry, normal turgor, no rashes or lesions noted. Medical Decision Making - Medical Decision Making 06/01/19 15:00 49-year-old female with right facial pain in the region of the right maxilla, associated with right upper quadrant tooth pain increased with biting down hard. No visible abscess on exam. No visible caries. No TMJ tenderness, no findings on ear examination. Impression: Probable toothache. Patient to continue nonsteroidals, start penicillin VK 500 4 times a day, 2 day course of Percocet. Patient will see her dentist tomorrow morning, and follow- up with ENT if the dentist cannot solve the issue. No signs of serious infection, and no airway compromise or swelling noted. *DC/Admit/Observation/Transfer Diagnosis at time of Disposition: Toothache, Facial pain, acute - Discharge Dispostion Disposition: HOME Condition at time of disposition: Stable Decision to Admit order: No - Prescriptions Prescriptions: Oxycodone HCl/Acetaminophen [Percocet 5-325 mg Tablet] 1 tab PO Q4H PRN #8 tablet MDD 4 PRN Reason: Severe Pain Penicillin V Potassium [Pen Vee K -] 500 mg PO QID #28 tablet - Referrals Referrals: Wendy Valencia MD [Primary Care Provider] - - Patient Instructions Printed Discharge Instructions: DI for Prescription Opioid Use, DI for Dental Pain Additional Instructions: Today you were evaluated for right cheek pain/facial pain. The most likely cause is dental pain. This could also be caused by trigeminal neuralgia or jaw joint pain. Take penicillin 4 times a day and Percocet as needed for pain. You may take both Aleve as well as Percocet to relieve severe pain. Apply oil of cloves to the sore tooth on the right side of your mouth. Follow-up in the morning with your dentist. Return to the emergency department for any severe symptoms. - Post Discharge Activity
[2019-06-01] MEDS ORDERED: PENICILLIN V POTASSIUM 500 MG TABLET PO ONE (15:07)
== END 2019-06-01 15:25 | disposition home or self-care (01) ==
LOC: FER 14:28
DX: K08.89 Other specified disorders of teeth and supporting structures (principal); G50.1 Atypical facial pain; E07.9 Disorder of thyroid, unspecified
CPT/HCPCS: 99282-25

== ENCOUNTER 2020-04-16 00:12 | Emergency (ER) | payer OTHER ==
[2020-04-16 00:18] VITALS: BP 125/76; PULSE 90; TEMP 98.2; BMI 31.8
--- NOTE | 2020-04-16 00:18 | PDOC ---
History of Present Illness - General Chief Complaint: Back Pain Stated Complaint: BACK PAIN Time Seen by Provider: 04/16/20 00:16 - History of Present Illness Initial Comments: This 49-year-old woman with a history of chronic back pain and multiple back surgeries presents with acute episode of lower back pain. 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 Patient lost her balance and twisted as she fell (did not impact her lower back). Since then, she has had pain in the right lower back/sacroiliac area with radiation into her buttock and posterior upper right thigh. Patient states that she has been taking [id number] nonsteroidal anti-inflammatory medications without significant relief. She already has arranged follow-up with her spinal surgeon on April 19. Past History - Medical History Allergies/Adverse Reactions: Allergies Allergy/AdvReac Type Severity Reaction Status Date / Time No Known Allergies Allergy Verified 06/01/19 14:29 Home Medications: Ambulatory Orders Levothyroxine [Synthroid -] 50 mcg PO DAILY@0700 tablet 07/05/16 Rabeprazole Sodium [Aciphex] 20 mg PO DAILY 03/04/18 Oxycodone HCl/Acetaminophen [Percocet 5-325 mg Tablet] 1 tab PO Q4H PRN #8 tablet MDD 4 06/01/19 Penicillin V Potassium [Pen Vee K -] 500 mg PO QID #28 tablet 06/01/19 Ketorolac Tromethamine [Toradol] 10 mg PO TID PRN #15 tablet 04/16/20 Methylprednisolone [Medrol Dose Kel] 4 mg PO ASDIR #21 tablet 04/16/20 Anemia: (VIT. D DEFICIENCY) Asthma: No Cancer: No Cardiac Disorders: No CVA: No COPD: No CHF: No Dementia: No Diabetes: No GI Disorders: Yes (GERD) Disorders: No HTN: No Hypercholesterolemia: No Liver Disease: No Seizures: No Thyroid Disease: Yes - Surgical History Abdominal Surgery: Yes (Laparoscopic Right Oopherectomy) Appendectomy: Yes Cardiac Surgery: No Cholecystectomy: No Lung Surgery: No Neurologic Surgery: Yes (LUMBAR DISCECTOMY, SPINAL FUSION) Orthopedic Surgery: Yes (LAMINECTOMY,Spinal Fusion 08/2016) - Immunization History Immunization Up to Date: Yes - Psycho-Social/Smoking History Smoking Status: No Smoking History: Never smoked Years of Tobacco Use: 0 Have you smoked in the past 12 months: No Number of Cigarettes Smoked Daily: 0 Cigars Per Day: 0 Review of Systems - Review of Systems Able to Perform ROS?: Yes Comments:: 12 point review of systems is negative except for what is noted in the history of present illness *Physical Exam - Physical Exam GENERAL: Adult female, alert and oriented x3, in mild distress secondary to lower back pain HEAD: Normal with no signs of trauma. EYES: PERRLA, EOMI, sclera anicteric, conjunctiva clear. EXTREMITIES: Normal range of motion, no edema. No clubbing or cyanosis. No erythema, or tenderness. NEUROLOGICAL: Cranial nerves II through XII grossly intact. Normal speech. No focal neurological deficits. MUSCULOSKELETAL: Back-tenderness to palpation right sacroiliac joint area; right paraspinal muscles lower lumbar region Right mid buttock also mildly tender Positive straight leg raising at 45 degrees on the right SKIN: Warm, Dry, normal turgor, no rashes or lesions noted. ED Progress Note - Progress Note Progress Note: This 49-year-old woman with a history of chronic lower back pain and s/p multiple spinal procedures presents with few day history of right lower back/buttock pain with radiating pain in sciatic distribution; this occurred after she fell off of stepstool at home twisting her back. Patient is tried OTC anti-inflammatory medications without relief. Exam as noted Toradol 60 mg IM given. Patient states that, in the past, Toradol tablets were very effective for her. Prescription for Toradol 10 mg up to 3 times a day to be taken with food as needed for back pain sent to her pharmacy. Also, prescription for Medrol dose pack also sent to her pharmacy. The patient will try Toradol first for relief of her pain. If she finds this ineffective, she will stop taking Toradol and begin the Medrol Dosepak. Patient has already arranged follow-up with her spinal surgeon on Sunday, April 19 If she has persistent severe pain or experiences weakness of her leg prior to her follow-up appointment, she should return to the ER Discharge - Discharge Information Problems reviewed: Yes Clinical Impression/Diagnosis: Lower back pain Qualifiers: Chronicity: acute Back pain laterality: right Sciatica presence: with sciatica Sciatica laterality: sciatica of right side Qualified Code(s): M54.41 - Lumbago with sciatica, right side Condition: Stable Disposition: HOME - Additional Discharge Information Prescriptions: Methylprednisolone [Medrol Dose Kel] 4 mg PO ASDIR #21 tablet Ketorolac Tromethamine [Toradol] 10 mg PO TID PRN #15 tablet PRN Reason: Back Pain - Follow up/Referral - Patient Discharge Instructions Patient Printed Discharge Instructions: DI for Low Back Pain Additional Instructions: Rest; avoid strenuous activities No work for the next 2 days Toradol 10 mg up to 3 times a day as needed; take with food If Toradol ineffective for pain, stop and begin Medrol Dosepak;take with food, taper as directed DO NOT take Toradol and Medrol together Follow-up with your spine surgeon on Sunday, April 19 as scheduled Return to ER if you have persistent severe pain - Post Discharge Activity Work/Back to School Note: Back to Work
[2020-04-16] MEDS ORDERED: KETOROLAC TROMETHAMINE 60 MG/2 ML VIAL IM ONE (00:29)
[2020-04-16] MEDS ORDERED: KETOROLAC TROMETHAMINE 60 MG/2 ML VIAL ONE (00:32)
== END 2020-04-16 00:38 | disposition home or self-care (01) ==
LOC: FER 00:12
PROC: 3E0233Z Introduction of Anti-inflammatory into Muscle, Percutaneous Approach (ICD-10-PCS; principal; 2020-04-16)
DX: M54.41 Lumbago with sciatica, right side (principal)
CPT/HCPCS: 99284-25

== ENCOUNTER 2020-04-26 21:27 | Emergency (ER) | payer OTHER ==
[2020-04-26] MEDS ORDERED: KETOROLAC TROMETHAMINE 60 MG/2 ML VIAL IM ONE (21:43)
[2020-04-26] MEDS ORDERED: KETOROLAC TROMETHAMINE 60 MG/2 ML VIAL ONE (22:01)
[2020-04-26 22:13] VITALS: BP 136/84; PULSE 92; TEMP 98.1; BMI 37.2
--- NOTE | 2020-04-27 00:08 | PDOC ---
Documentation entered by Michael Lin SCRIBE, acting as scribe for Roseline Mei MD. Roseline Mei MD: This documentation has been prepared by the Tristen sierra Nirvannie, SCRIBE, under my direction and personally reviewed by me in its entirety. I confirm that the documentation accurately reflects all work, treatment, procedures, and medical decision making performed by me. History of Present Illness - General Chief Complaint: Back Pain Stated Complaint: LOWER BACK PAIN Time Seen by Provider: 04/26/20 21:29 History Source: Patient Exam Limitations: No Limitations - History of Present Illness Initial Comments: 04/26/20 22:11 The patient is a 49 year old female with a significant past medical history of chronic back (s/p multiple back surgeries) who presents to the emergency department with 13 days of persistent lower back pain. As per patient, her back pain was acutely exacerbated approximately 13 days ago at which time she lost her balance twisting her back. Patient was evaluated in the ED 10 days ago for pain in the right lower back/sacroiliac area with radiation into her buttock and posterior upper right thigh and discharged on a Medrol dose pack and Toradol. Patient notes taking a few days off of work since her discharge and being evaluated by her PCP at which time she was given Toradol, without relief. Patient presents to the emergency department today for progressively worsening back with radiation down the right lower extremity. Patient notes associated intermittent paresthesias to the right lower extremity which she attributes to her baseline exacerbations of back pain. She has an appointment with a newspinal surgeon in 3 days and an outpatient MRI scheduled in 4 days. She denies any urinary or bowel incontinence. Allergies: [facility] Primary Care Physician: Dr. Valencia Past History - Medical History Allergies/Adverse Reactions: Allergies Allergy/AdvReac Type Severity Reaction Status Date / Time No Known Allergies Allergy Verified 06/01/19 14:29 Home Medications: Ambulatory Orders Levothyroxine [Synthroid -] 50 mcg PO DAILY@0700 tablet 07/05/16 Rabeprazole Sodium [Aciphex] 20 mg PO DAILY 03/04/18 Oxycodone HCl/Acetaminophen [Percocet 5-325 mg Tablet] 1 tab PO Q4H PRN #8 tablet MDD 4 06/01/19 Penicillin V Potassium [Pen Vee K -] 500 mg PO QID #28 tablet 06/01/19 Ketorolac Tromethamine [Toradol] 10 mg PO TID PRN #15 tablet 04/16/20 Methylprednisolone [Medrol Dose Kel] 4 mg PO ASDIR #21 tablet 04/16/20 Diclofenac Sodium 75 mg PO BID PRN #14 tablet. 04/26/20 Oxycodone HCl/Acetaminophen [Percocet 5-325 mg Tablet] 1 tab PO Q6H PRN #16 tablet MDD 4 tabs 04/26/20 Tizanidine HCl 2 mg PO TID PRN #10 tablet 04/26/20 Anemia: (VIT. D DEFICIENCY) Asthma: No Cancer: No Cardiac Disorders: No CVA: No COPD: No CHF: No Dementia: No Diabetes: No GI Disorders: Yes (GERD) Disorders: No HTN: No Hypercholesterolemia: No Liver Disease: No Seizures: No Thyroid Disease: Yes - Surgical History Abdominal Surgery: Yes (Laparoscopic Right Oopherectomy) Appendectomy: Yes Cardiac Surgery: No Cholecystectomy: No Lung Surgery: No Neurologic Surgery: Yes (LUMBAR DISCECTOMY, SPINAL FUSION) Orthopedic Surgery: Yes (LAMINECTOMY,Spinal Fusion 08/2016) - Immunization History Immunization Up to Date: Yes - Psycho-Social/Smoking History Smoking Status: No Smoking History: Never smoked Years of Tobacco Use: 0 Have you smoked in the past 12 months: No Number of Cigarettes Smoked Daily: 0 Cigars Per Day: 0 Review of Systems - Review of Systems Able to Perform ROS?: Yes Comments:: 04/26/20 22:12 CONSTITUTIONAL: Absent: fever, no chills, no fatigue EYES: Absent: visual changes ENT: Absent: ear pain, no sore throat CARDIOVASCULAR: Absent: chest pain, no palpitations RESPIRATORY: Absent: cough, no SOB GI: Absent: abdominal pain, no nausea, no vomiting, no constipation, no diarrhea GENITOURINARY: Absent: dysuria, no frequency, no hematuria MUSKULOSKELETAL: Present: Back pain. Absent: no arthralgia, no myalgia SKIN: Absent: rash NEURO: Absent: headache All Other Systems: Reviewed and Negative *Physical Exam - Physical Exam 04/26/20 22:36 GENERAL: The patient is awake, alert, and fully oriented, in no acute distress. HEAD:Normal with no signs of trauma. EYES: Pupils equal, round and reactive to light, extraocular movements intact, sclera anicteric, conjunctiva clear. EXTREMITIES: RLE: +Positive straight leg raise to approximately 25 degrees. Mild tenderness to palpation to the right ankle and dorsum of the right foot without deformities or ecchymosis. NEUROLOGICAL: Normal speech, normal gait. PSYCH: Normal mood, normal affect. SKIN: Warm, Dry, normal turgor, no rashes or lesions noted. ED Progress Note - Progress Note Progress Note: As noted above, this 49-year-old woman with a history of chronic back pain (s/p multiple procedures) presents with persistent lower back pain with right-sided sciatica. Patient was seen here 10 days ago after an injury in her home (twisted her lower back when she fell off of a short stepstool). Patient had been discharged on steroid taper but had persistent pain. Her original spine surgeon no longer takes her insurance so she has had a delay in follow-up care. She will be seeing her new spinal surgeon on April 29 with MRI scheduled for the following day. 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 Exam as noted with no significant midline vertebral body tenderness but marked pain with straight leg raising. Patient received Toradol 60 mg IM along with Percocet 5/325 2 tablets by mouth now. Prescriptions for diclofenac 75 mg twice a day as needed/tizanidine 2 mg up to 3 times a day as needed for muscle spasm/Percocet 5/325 up to 4 tabs a day (#16) as needed for severe pain has been transmitted to her pharmacy. Patient should avoid extensive standing as well as strenuous exercise over the next few days. Work documentation has been provided for the patient. If the patient has worsening pain, weakness or persistent numbness in her leg prior to seeing her spinal surgeon, she should return here Discharge - Discharge Information Problems reviewed: Yes Clinical Impression/Diagnosis: Lower back pain Qualifiers: Chronicity: acute Back pain laterality: midline Sciatica presence: with sciatica Sciatica laterality: sciatica of right side Qualified Code(s): M54.41 - Lumbago with sciatica, right side Condition: Stable - Additional Discharge Information Prescriptions: Diclofenac Sodium 75 mg PO BID PRN #[address] tablet[address] HERRERA Reason: Back Pain Oxycodone HCl/Acetaminophen [Percocet 5-325 mg Tablet] 1 tab PO Q6H PRN #16 tablet MDD 4 tabs PRN Reason: Severe Pain Tizanidine HCl 2 mg PO TID PRN #10 tablet PRN Reason: Muscle Spasms - Follow up/Referral - Patient Discharge Instructions Patient Printed Discharge Instructions: DI for Back Pain With Sciatica Additional Instructions: Rest;Avoid standing for prolonged periods of time No work until seen by orthopedist on April 29 Diclofenac 75 mg twice a day as needed for pain Tizanidine 2 mg up to 3 times a day as needed for muscle spasm Percocet 5/325 every 6 hours as needed for severe pain Do not engage in any activity requiring your full attention when taking ti zanidine or Percocet Follow-up with orthopedist on April 29 as scheduled - Post Discharge Activity Work/Back to School Note: Back to Work
== END 2020-04-26 23:16 ==
LOC: FER 21:27
PROC: 3E0233Z Introduction of Anti-inflammatory into Muscle, Percutaneous Approach (ICD-10-PCS; principal; 2020-04-26)
DX: M54.41 Lumbago with sciatica, right side (principal)
CPT/HCPCS: 99284-25

== ENCOUNTER 2020-07-09 20:36 | Emergency (ER) | payer OTHER ==
[2020-07-09 20:45] VITALS: BP 125/83; PULSE 81; TEMP 98.4; BMI 38.7
--- NOTE | 2020-07-09 21:14 | PDOC ---
History of Present Illness - General Chief Complaint: Chest Pain Stated Complaint: PAIN, MALAISE Time Seen by Provider: 07/09/20 20:50 History Source: Patient Exam Limitations: No Limitations - History of Present Illness Initial Comments: 07/09/20 21:40 Has a 50-year-old female who has a long history of chronic back pain taking multiple pain medications for her chronic back pain who comes in complaining now of chest pain. Patient said that she is experiencing a pressure on her chest that is pleuritic in nature and worse with exertion. In addition to that patient is complaining of some room spinning and sensation that she feels like she might pass out intermittently. Patient does not lose consciousness but just feels a vertigo type sensation that lasts a few seconds and then resolves. It is not associated with any nausea or movement of her head. Patient denies his tory of coronary disease or risk factors for coronary disease other than her obesity. Allergies: as per nursing notes Past Medical History: As per HPI and hypothyroid Social history: Lives with family. No smoking. No alcohol. No illicit drugs. Surgical history: None General: No fevers or chills, no weakness, no weight loss HEENT: No change in vision. No sore throat,. No ear pain CardioVascular: no chest discomfort. No shortness of breath Respiratory:No cough, or wheezing. Gastrointestinal: no nausea, vomiting, diarrhea or constipation, No rectal bleeding Genitourinary: No dysuria, hematuria, or frequency Musculoskeletal: No joint or muscle pain or swelling Neurologic: No headache, vertigo, dizziness or loss of consciousness Psychiatric: nor depression Skin: No rashes or easy bruising Endocrine: no increased thirst or abnormal weight change Allergic: no skin or latex allergy All other systems reviewed and normal Exam: General: Well-nourished well-developed individual, no acute distress HEENT: Throat: Normal, tonsils normal, no erythema or exudate Neck: Supple, no meningeal signs, no lymphadenopathy Eyes::Pupils equal reactive and round, extraocular motion intact Chest: Nontender to palpation Cardiac: S1-S2 normal, regular rate and rhythm, no murmurs rubs or gallops Respiratory: Lungs clear to auscultation bilateral Abdomen: Soft, nondistended, normal bowel sounds, there is no tenderness on palpation diffusely Extremities: Warm, dry, no cyanosis, clubbing, or edema Skin: No rashes Neuro: Alert and oriented x3, CN II - XII intact, nonfocal exam with normal strength, normal sensation, normal reflexes, normal gait, Psych: Normal mood and affect Plan: This is a 50-year-old female who comes in complaining of pleuritic chest pain times approximately 6 hours now. Patient denies any other complaints. Patient denies any PE risk factors other than her obesity. CTA of the chest CBC, comp EKG and chest x-ray. Chest x-ray showed no acute pathology EKG showed nothing acute. CT [place] of the chest was negative for PE or anything acute. Blood work was otherwise normal. Patient discharged we will follow-up with her primary care doctor. Patient told to take NSAIDs Past History - Medical History Allergies/Adverse Reactions: Allergies Allergy/AdvReac Type Severity Reaction Status Date / Time No Known Allergies Allergy Verified 06/01/19 14:29 Home Medications: Ambulatory Orders Levothyroxine [Synthroid -] 50 mcg PO DAILY@0700 tablet 07/05/16 Rabeprazole Sodium [Aciphex] 20 mg PO DAILY 03/04/18 Oxycodone HCl/Acetaminophen [Percocet 5-325 mg Tablet] 1 tab PO Q4H PRN #8 tablet MDD 4 06/01/19 Penicillin V Potassium [Pen Vee K -] 500 mg PO QID #28 tablet 06/01/19 Ketorolac Tromethamine [Toradol] 10 mg PO TID PRN #15 tablet 04/16/20 Methylprednisolone [Medrol Dose Kel] 4 mg PO ASDIR #21 tablet 04/16/20 Diclofenac Sodium 75 mg PO BID PRN #14 tablet. 04/26/20 Oxycodone HCl/Acetaminophen [Percocet 5-325 mg Tablet] 1 tab PO Q6H PRN #16 tablet MDD 4 tabs 04/26/20 Tizanidine HCl 2 mg PO TID PRN #10 tablet 04/26/20 Anemia: (VIT. D DEFICIENCY) Asthma: No Cancer: No Cardiac Disorders: No CVA: No COPD: No CHF: No Dementia: No Diabetes: No GI Disorders: Yes (GERD) Disorders: No HTN: Yes Hypercholesterolemia: No Liver Disease: No Seizures: No Thyroid Disease: Yes - Surgical History Abdominal Surgery: Yes (Laparoscopic Right Oopherectomy) Appendectomy: Yes Cardiac Surgery: No Cholecystectomy: No Lung Surgery: No Neurologic Surgery: Yes (LUMBAR DISCECTOMY, SPINAL FUSION) Orthopedic Surgery: Yes (LAMINECTOMY,Spinal Fusion 08/2016) - Reproductive History Is Patient Now?: No - Immunization History Immunization Up to Date: Yes - Psycho-Social/Smoking History Smoking Status: No Smoking History: Never smoked Years of Tobacco Use: 0 Have you smoked in the past 12 months: No Number of Cigarettes Smoked Daily: 0 Cigars Per Day: 0 Cardiac Specific PMH - Complaint Specific PMHX Pacemaker: No *Physical Exam - Vital Signs Last Vital Signs Temp Pulse Resp BP Pulse Ox 98.4 F 81 16 125/83 100 07/09/20 20:41 07/09/20 20:41 07/09/20 20:41 07/09/20 20:41 07/09/20 20:41 ED Treatment Course - LABORATORY CBC & Chemistry Diagram: 07/09/20 21:00 07/09/20 21:00 - ADDITIONAL ORDERS Additional order review: Laboratory Results 07/09/20 07/09/20 21:00 21:00 Sodium 139 Potassium 4.0 Chloride 104 Carbon Dioxide 26 Anion Gap 9 BUN 26.0 H Creatinine 0.8 Est GFR (CKD-EPI)AfAm 99.63 Est GFR (CKD-EPI)NonAf 85.96 Random Glucose 96 Calcium 9.1 Total Bilirubin 0.8 AST 20 ALT 25 Alkaline Phosphatase 76 Creatine Kinase 251 H Creatine Kinase Index 1.1 CK-MB (CK-2) 3.0 Troponin I < 0.03 Total Protein 7.3 Albumin 4.1 07/09/20 21:00 RBC 4.33 MCV 89.6 MCHC 33.1 RDW 12.9 D MPV 9.0 Neutrophils % 63.7 Lymphocytes % 26.3 Monocytes % 6.8 Eosinophils % 2.3 Basophils % 0.9 - RADIOLOGY Radiology Studies Ordered: Category Date Time Status CHEST CTA [CT] Stat CT Scan 07/09/20 21:37 Completed CHEST X-RAY PORTABLE* [RAD] Stat Radiology 07/09/20 20:51 Taken Discharge - Discharge Information Problems reviewed: Yes Clinical Impression/Diagnosis: Chest pain Condition: Stable Disposition: HOME - Admission No - Follow up/Referral Referrals: Wendy Valencia MD [Primary Care Provider] - - Patient Discharge Instructions Additional Instructions: Your symptoms most likely are secondary to a viral infection. Take ibuprofen 3 tablets 3 times a day with food do not take on an empty stomach take them for the next 3 to 4 days or until symptoms resolve. Return to the emergency department immediately with ANY new, persistent or worsening symptoms. Continue any medications as previously prescribed by your physician. You should follow up with your primary doctor as soon as possible regarding today's emergency department visit. . Please make sure your doctor reviews the results of your emergency evaluation. Thank you for coming to the Emergency Department today for your care. It was a pleasure to see you today. Please note that your evaluation is INCOMPLETE until you follow-up with your doctor. - Post Discharge Activity Work/Back to School Note: Back to Work
[2020-07-09 21:25] LABS: BASO % 0.9 % (0-2.0); EOS % 2.3 % (0-4.5); HEMATOCRIT 38.8 % (32.4-45.2); HEMOGLOBIN 12.8 GM/dl (10.7-15.3); LYMPH % 26.3 % (8-40); MCH 29.6 pg (25.7-33.7); MCHC 33.1 g/dl (32.0-36.0); MEAN CELL VOLUME 89.6 fl (80-96); MONO % 6.8 % (3.8-10.2); NEUT % 63.7 % (42.8-82.8); PLATELET COUNT 290 K/MM3 (134-434); RBC 4.33 M/mm3 (3.60-5.2); RDW 12.9 % (11.6-15.6); WHITE BLOOD COUNT 9.1 K/mm3 (4.0-10.8)
[2020-07-09 21:33] LABS: ALBUMIN 4.1 g/dl (3.4-5.0); BILIRUBIN,TOTAL 0.8 mg/dl (0.2-1); CALCIUM 9.1 mg/dl (8.5-10); CREATININE 0.8 mg/dl (0.55-1.3); TOT PROT 7.3 g/dl (6.4-8.2)
--- NOTE | 2020-07-11 21:40 | EKG ---
Test Reason : Blood Pressure : / mmHG Vent. Rate : 082 BPM Atrial Rate : 082 BPM P-R Int : 160 ms QRS Dur : 074 ms QT Int : 380 ms P-R-T Axes : 029 -08 000 degrees QTc Int : 443 ms NORMAL SINUS RHYTHM MINIMAL VOLTAGE CRITERIA FOR LVH, MAY BE NORMAL VARIANT BORDERLINE ECG WHEN COMPARED WITH ECG OF 23-DEC-2018 17:47, NO SIGNIFICANT CHANGE WAS FOUND Confirmed by EDD MATTHEW, PARI ([id number]) on 07/11/2020 9:40:35 PM Referred By: LISETTE Confirmed By:PARI PUGA MD
== END 2020-07-10 00:31 | disposition home or self-care (01) ==
LOC: FER 20:36
DX: R07.9 Chest pain, unspecified (principal)
CPT/HCPCS: 36415; 71045-TC-FY; 71275-TC; 80053; 82550; 82553; 84484; 85025; 93005; 99285-25; Q9967

== ENCOUNTER 2020-10-23 19:14 | Emergency (ER) | payer OTHER ==
[2020-10-23 19:28] VITALS: BP 151/86; PULSE 89; TEMP 98.7; BMI 34.0
[2020-10-23] MEDS ORDERED: ACETAMINOPHEN 500 MG TABLET (FP) ONE (20:59)
[2020-10-23] MEDS ORDERED: ACETAMINOPHEN 500 MG TABLET (FP) PO ONE (21:05)
[2020-10-23] MEDS ORDERED: KETOROLAC TROMETHAMINE 60 MG/2 ML VIAL IM ONE (21:24)
[2020-10-23] MEDS ORDERED: KETOROLAC TROMETHAMINE 60 MG/2 ML VIAL ONE (21:24)
== END 2020-10-23 21:30 | disposition home or self-care (01) ==
LOC: FER 19:14
PROC: 3E0233Z Introduction of Anti-inflammatory into Muscle, Percutaneous Approach (ICD-10-PCS; principal; 2020-10-23)
DX: S06.0X0A Concussion without loss of consciousness, initial encounter (principal); S93.402A Sprain of unspecified ligament of left ankle, initial encounter
CPT/HCPCS: 70450-TC; 72125-TC; 73070-TC-LT-FY; 73130-TC-LT-FY; 73562-TC-LT-FY; 73610-TC-LT-FY; 73630-TC-LT; 99285-25

== ENCOUNTER 2021-09-29 15:13 | Inpatient (IN) | payer OTHER ==
[2021-09-29] MEDS ORDERED: DEXAMETHASONE SOD PHOSPHATE 10 MG/1 ML VIAL IVPUSH ONE (18:36)
[2021-09-29] MEDS ORDERED: DEXAMETHASONE SOD PHOSPHATE 10 MG/1 ML VIAL ONE (18:43)
[2021-09-29] MEDS ORDERED: LACTATED RINGERS SOLUTION 1,000 ML/1,000 ML INFUS.BAG IV STA (19:15)
[2021-09-29 19:28] LABS: BASO % 0.1 % (0-2.0); EOS % 0.2 % (0-4.5); HEMATOCRIT 37.7 % (32.4-45.2); HEMOGLOBIN 12.8 GM/dL (10.7-15.3); LYMPH % 18.5 % (8-40); MCH 29.3 pg (25.7-33.7); MCHC 33.8 g/dl (32.0-36.0); MEAN CELL VOLUME 86.8 fl (80-96); MEAN PLT VOLUME 8.4 fl (7.5-11.1); MONO % 8.7 % (3.8-10.2); NEUT % 72.5 % (42.8-82.8); PLATELET COUNT 241 10^3/uL (134-434); RBC 4.35 M/mm3 (3.60-5.2); RDW 13.7 % (11.6-15.6); WHITE BLOOD COUNT 8.6 K/mm3 (4.0-10.0)
[2021-09-29 19:35] LABS: INR 1.21 (0.83-1.09); PROTHROMBIN TIME (PATIENT) 13.6 SEC (9.7-13.0)
[2021-09-29 19:38] LABS: ACTIVATED PTT 25.1 SECONDS (25.2-36.5)
[2021-09-29 19:49] LABS: ALBUMIN 3.3 g/dl (3.4-5.0); BLOOD UREA NITROGEN 9.9 mg/dL (7-18); CALCIUM 8.2 mg/dL (8.5-10.1)
[2021-09-29 19:53] LABS: CREATININE 0.9 mg/dL (0.55-1.3)
[2021-09-29 19:54] LABS: BILIRUBIN,TOTAL 1.2 mg/dL (0.2-1); TOT PROT 7.5 g/dl (6.4-8.2)
[2021-09-29 20:11] LABS: ERYTHROCYTE SEDIMENTATION RATE 69 mm/hr (0-30)
[2021-09-29] MEDS ORDERED: ALBUTEROL SO4 HFA INHALER IH PRN (23:49)
[2021-09-30 06:42] LABS: CALCIUM 8.3 mg/dL (8.5-10.1)
[2021-09-30 06:43] LABS: BASO % 0.2 % (0-2.0); BLOOD UREA NITROGEN 10.6 mg/dL (7-18); HEMATOCRIT 36.8 % (32.4-45.2); HEMOGLOBIN 12.4 GM/dL (10.7-15.3); LYMPH % 12.5 % (8-40); MAGNESIUM 2.5 mg/dL (1.8-2.4); MCH 29.5 pg (25.7-33.7); MCHC 33.8 g/dl (32.0-36.0); MEAN CELL VOLUME 87.2 fl (80-96); MEAN PLT VOLUME 8.6 fl (7.5-11.1); MONO % 6.5 % (3.8-10.2); NEUT % 80.8 % (42.8-82.8); PLATELET COUNT 240 10^3/uL (134-434); RBC 4.22 M/mm3 (3.60-5.2); RDW 13.6 % (11.6-15.6)
[2021-09-30 06:46] LABS: CREATININE 0.8 mg/dL (0.55-1.3)
[2021-09-30] MEDS ORDERED: ASCORBIC ACID 500 MG TABLET (FP) ONE (07:52)
[2021-09-30] MEDS ORDERED: CHOLECALCIFEROL (VIT D3) 1,000 UNIT (25 MCG) TABLET ONE (07:53)
[2021-09-30] MEDS ORDERED: PANTOPRAZOLE 40 MG TABLET ONE (07:53)
[2021-09-30] MEDS ORDERED: ZINC SULFATE 220 MG CAPSULE (FP) ONE (07:53)
[2021-09-30] MEDS ORDERED: LEVOTHYROXINE NA 25 MCG TABLET (FP) ONE (07:54)
[2021-09-30] MEDS: LEVOTHYROXINE NA 50 MCG TABLET (FP) PO SCH (07:55)
[2021-09-30] MEDS: ZINC SULFATE 220 MG CAPSULE (FP) PO SCH (09:00)
[2021-09-30] MEDS: ASCORBIC ACID 500 MG TABLET (FP) PO SCH (09:00)
[2021-09-30] MEDS: CHOLECALCIFEROL (VIT D3) 1,000 UNIT (25 MCG) TABLET PO SCH (09:00)
[2021-09-30] MEDS: PANTOPRAZOLE 40 MG TABLET PO SCH (09:00)
[2021-09-30] MEDS ORDERED: MELATONIN 5 MG TABLETS PO PRN (10:49)
[2021-09-30] MEDS ORDERED: ACETAMINOPHEN 325 MG TABLET (FP) PO PRN (10:52)
[2021-09-30] MEDS: DEXAMETHASONE SOD PHOSPHATE 4 MG/1 ML VIAL IVPUSH SCH (12:00)
[2021-09-30] MEDS: INSULIN SLIDING SCALE (NOVOLOG) 1 VIAL SQ SCH ×3 (12:09→22:55)
[2021-09-30] MEDS ORDERED: REMDESIVIR 200 MG in SODIUM CHLORIDE 250 ML IVPB ONE (13:00)
[2021-09-30] MEDS: ENOXAPARIN NA (PORCINE) 40 MG/0.4 ML DISP.SYRIN SQ SCH (13:05)
[2021-09-30] MEDS: BUDESONIDE/FORMETEROL FUMARATE 160/4.5 mcg INHALER IH SCH ×2 (13:05→22:46)
[2021-09-30 20:38] VITALS: BMI 45.7
[2021-10-01] MEDS: LEVOTHYROXINE NA 50 MCG TABLET (FP) PO SCH (06:22)
[2021-10-01] MEDS: INSULIN SLIDING SCALE (NOVOLOG) 1 VIAL SQ SCH ×4 (06:25→21:33)
[2021-10-01 08:18] LABS: HEMATOCRIT 35.1 % (32.4-45.2); MCH 29.6 pg (25.7-33.7); MCHC 34.2 g/dl (32.0-36.0); MEAN CELL VOLUME 86.8 fl (80-96); MEAN PLT VOLUME 8.5 fl (7.5-11.1); PLATELET COUNT 279 10^3/uL (134-434); RBC 4.04 M/mm3 (3.60-5.2); RDW 13.6 % (11.6-15.6); WHITE BLOOD COUNT 7.4 K/mm3 (4.0-10.0)
[2021-10-01 08:49] LABS: ALBUMIN 2.9 g/dl (3.4-5.0); BLOOD UREA NITROGEN 16.3 mg/dL (7-18); CALCIUM 8.4 mg/dL (8.5-10.1); MAGNESIUM 2.7 mg/dL (1.8-2.4)
[2021-10-01 08:52] LABS: CREATININE 0.7 mg/dL (0.55-1.3); PHOSPHOROUS 3.1 mg/dL (2.5-4.9)
[2021-10-01 08:54] LABS: BILIRUBIN,TOTAL 0.6 mg/dL (0.2-1); TOT PROT 6.5 g/dl (6.4-8.2)
[2021-10-01] MEDS: DEXAMETHASONE SOD PHOSPHATE 4 MG/1 ML VIAL IVPUSH SCH (10:01)
[2021-10-01] MEDS: guaiFENesin 200 MG/10 ML 10 ML UNIT-DOSE CUPS PO PRN (10:02)
[2021-10-01] MEDS: ASCORBIC ACID 500 MG TABLET (FP) PO SCH (10:02)
[2021-10-01] MEDS: PANTOPRAZOLE 40 MG TABLET PO SCH (10:02)
[2021-10-01] MEDS: ENOXAPARIN NA (PORCINE) 40 MG/0.4 ML DISP.SYRIN SQ SCH (10:02)
[2021-10-01] MEDS: CHOLECALCIFEROL (VIT D3) 1,000 UNIT (25 MCG) TABLET PO SCH (10:02)
[2021-10-01] MEDS: ZINC SULFATE 220 MG CAPSULE (FP) PO SCH (10:02)
[2021-10-01] MEDS: BUDESONIDE/FORMETEROL FUMARATE 160/4.5 mcg INHALER IH SCH ×2 (10:15→21:24)
[2021-10-01] MEDS: Insulin (LOG) Aspart 100 UNITS/ML VIAL SQ SCH ×2 (12:54→17:31)
[2021-10-01] MEDS: REMDESIVIR 100 MG in SODIUM CHLORIDE 250 ML IVPB SCH (13:33)
[2021-10-01] MEDS: INSULIN (LEVEMIR) 100 UNITS/ML UNITS SQ SCH (21:24)
[2021-10-02] MEDS: LEVOTHYROXINE NA 50 MCG TABLET (FP) PO SCH (06:03)
[2021-10-02] MEDS: INSULIN SLIDING SCALE (NOVOLOG) 1 VIAL SQ SCH ×4 (06:06→21:02)
[2021-10-02] MEDS: Insulin (LOG) Aspart 100 UNITS/ML VIAL SQ SCH ×3 (06:06→17:26)
[2021-10-02 08:16] LABS: BASO % 0.2 % (0-2.0); EOS % 0.2 % (0-4.5); HEMATOCRIT 35.4 % (32.4-45.2); HEMOGLOBIN 11.8 GM/dL (10.7-15.3); LYMPH % 21.6 % (8-40); MCH 29.4 pg (25.7-33.7); MCHC 33.5 g/dl (32.0-36.0); MEAN CELL VOLUME 87.9 fl (80-96); MEAN PLT VOLUME 8.8 fl (7.5-11.1); MONO % 10.1 % (3.8-10.2); NEUT % 67.9 % (42.8-82.8); PLATELET COUNT 275 10^3/uL (134-434); RBC 4.03 M/mm3 (3.60-5.2); RDW 13.7 % (11.6-15.6); WHITE BLOOD COUNT 7.1 K/mm3 (4.0-10.0)
[2021-10-02 08:22] LABS: MAGNESIUM 2.6 mg/dL (1.8-2.4)
[2021-10-02 08:24] LABS: PHOSPHOROUS 2.8 mg/dL (2.5-4.9)
[2021-10-02] MEDS: ENOXAPARIN NA (PORCINE) 40 MG/0.4 ML DISP.SYRIN SQ SCH (10:14)
[2021-10-02] MEDS: ZINC SULFATE 220 MG CAPSULE (FP) PO SCH (10:14)
[2021-10-02] MEDS: CHOLECALCIFEROL (VIT D3) 1,000 UNIT (25 MCG) TABLET PO SCH (10:15)
[2021-10-02] MEDS: DEXAMETHASONE SOD PHOSPHATE 4 MG/1 ML VIAL IVPUSH SCH (10:15)
[2021-10-02] MEDS: ASCORBIC ACID 500 MG TABLET (FP) PO SCH (10:15)
[2021-10-02] MEDS: PANTOPRAZOLE 40 MG TABLET PO SCH (10:15)
[2021-10-02] MEDS: BUDESONIDE/FORMETEROL FUMARATE 160/4.5 mcg INHALER IH SCH ×2 (10:17→21:02)
[2021-10-02] MEDS: guaiFENesin 200 MG/10 ML 10 ML UNIT-DOSE CUPS PO PRN (10:23)
[2021-10-02] MEDS: INSULIN (LEVEMIR) 100 UNITS/ML UNITS SQ SCH ×2 (10:36→21:02)
[2021-10-02] MEDS: REMDESIVIR 100 MG in SODIUM CHLORIDE 250 ML IVPB SCH (13:37)
[2021-10-03] MEDS: LEVOTHYROXINE NA 50 MCG TABLET (FP) PO SCH (06:28)
[2021-10-03] MEDS: Insulin (LOG) Aspart 100 UNITS/ML VIAL SQ SCH ×3 (06:32→17:30)
[2021-10-03] MEDS: INSULIN SLIDING SCALE (NOVOLOG) 1 VIAL SQ SCH ×4 (06:32→21:22)
[2021-10-03 08:27] LABS: BASO % 0.1 % (0-2.0); EOS % 0.4 % (0-4.5); HEMATOCRIT 36.3 % (32.4-45.2); HEMOGLOBIN 12.3 GM/dL (10.7-15.3); LYMPH % 23.4 % (8-40); MCH 29.5 pg (25.7-33.7); MCHC 33.8 g/dl (32.0-36.0); MEAN CELL VOLUME 87.4 fl (80-96); MEAN PLT VOLUME 8.2 fl (7.5-11.1); MONO % 9.3 % (3.8-10.2); NEUT % 66.8 % (42.8-82.8); PLATELET COUNT 313 10^3/uL (134-434); RBC 4.16 M/mm3 (3.60-5.2); RDW 13.3 % (11.6-15.6); WHITE BLOOD COUNT 7.1 K/mm3 (4.0-10.0)
[2021-10-03 08:55] LABS: MAGNESIUM 2.5 mg/dL (1.8-2.4)
[2021-10-03 08:59] LABS: PHOSPHOROUS 3.2 mg/dL (2.5-4.9)
[2021-10-03] MEDS: ENOXAPARIN NA (PORCINE) 40 MG/0.4 ML DISP.SYRIN SQ SCH (09:49)
[2021-10-03] MEDS: ZINC SULFATE 220 MG CAPSULE (FP) PO SCH (09:49)
[2021-10-03] MEDS: PANTOPRAZOLE 40 MG TABLET PO SCH (09:49)
[2021-10-03] MEDS: ASCORBIC ACID 500 MG TABLET (FP) PO SCH (09:49)
[2021-10-03] MEDS: DEXAMETHASONE SOD PHOSPHATE 4 MG/1 ML VIAL IVPUSH SCH (09:50)
[2021-10-03] MEDS: CHOLECALCIFEROL (VIT D3) 1,000 UNIT (25 MCG) TABLET PO SCH (09:50)
[2021-10-03] MEDS: BUDESONIDE/FORMETEROL FUMARATE 160/4.5 mcg INHALER IH SCH ×2 (09:50→21:23)
[2021-10-03] MEDS: INSULIN (LEVEMIR) 100 UNITS/ML UNITS SQ SCH ×2 (09:51→21:19)
[2021-10-03] MEDS: guaiFENesin 200 MG/10 ML 10 ML UNIT-DOSE CUPS PO PRN ×2 (10:27→20:18)
[2021-10-03 12:52] LABS: BLOOD UREA NITROGEN 20.2 mg/dL (7-18); CALCIUM 8.1 mg/dL (8.5-10.1)
[2021-10-03 12:53] LABS: ALBUMIN 2.7 g/dl (3.4-5.0)
[2021-10-03 12:54] LABS: CREATININE 0.8 mg/dL (0.55-1.3)
[2021-10-03 12:57] LABS: BILIRUBIN,TOTAL 0.5 mg/dL (0.2-1)
[2021-10-03] MEDS: REMDESIVIR 100 MG in SODIUM CHLORIDE 250 ML IVPB SCH (13:01)
[2021-10-04] MEDS: INSULIN (LEVEMIR) 100 UNITS/ML UNITS SQ SCH ×2 (06:26→22:03)
[2021-10-04] MEDS: Insulin (LOG) Aspart 100 UNITS/ML VIAL SQ SCH ×3 (06:26→17:23)
[2021-10-04] MEDS: INSULIN SLIDING SCALE (NOVOLOG) 1 VIAL SQ SCH ×4 (06:26→22:03)
[2021-10-04] MEDS: LEVOTHYROXINE NA 50 MCG TABLET (FP) PO SCH (06:26)
[2021-10-04] MEDS ORDERED: PT OWN MED DRAWER 7, Y5N ONE (09:12)
[2021-10-04] MEDS: ZINC SULFATE 220 MG CAPSULE (FP) PO SCH (09:24)
[2021-10-04] MEDS: ENOXAPARIN NA (PORCINE) 40 MG/0.4 ML DISP.SYRIN SQ SCH (09:24)
[2021-10-04] MEDS: DEXAMETHASONE SOD PHOSPHATE 4 MG/1 ML VIAL IVPUSH SCH (09:24)
[2021-10-04] MEDS: ASCORBIC ACID 500 MG TABLET (FP) PO SCH (09:24)
[2021-10-04] MEDS: PANTOPRAZOLE 40 MG TABLET PO SCH (09:24)
[2021-10-04] MEDS: CHOLECALCIFEROL (VIT D3) 1,000 UNIT (25 MCG) TABLET PO SCH (09:24)
[2021-10-04] MEDS: BUDESONIDE/FORMETEROL FUMARATE 160/4.5 mcg INHALER IH SCH ×2 (09:26→22:03)
[2021-10-04 10:17] LABS: BLOOD UREA NITROGEN 23.4 mg/dL (7-18)
[2021-10-04 10:18] LABS: CALCIUM 8.7 mg/dL (8.5-10.1)
[2021-10-04 10:19] LABS: ALBUMIN 2.9 g/dl (3.4-5.0)
[2021-10-04 10:22] LABS: CREATININE 0.8 mg/dL (0.55-1.3)
[2021-10-04 10:23] LABS: BILIRUBIN,TOTAL 0.5 mg/dL (0.2-1); TOT PROT 6.6 g/dl (6.4-8.2)
[2021-10-04] MEDS: REMDESIVIR 100 MG in SODIUM CHLORIDE 250 ML IVPB SCH (13:40)
[2021-10-04 15:30] LABS: HEMATOCRIT 39.8 % (32.4-45.2); HEMOGLOBIN 13.2 GM/dL (10.7-15.3); MCH 29.2 pg (25.7-33.7); MCHC 33.2 g/dl (32.0-36.0); MEAN PLT VOLUME 8.5 fl (7.5-11.1); PLATELET COUNT 373 10^3/uL (134-434); RBC 4.52 M/mm3 (3.60-5.2); RDW 13.6 % (11.6-15.6); WHITE BLOOD COUNT 12.3 K/mm3 (4.0-10.0)
[2021-10-04] MEDS: guaiFENesin 200 MG/10 ML 10 ML UNIT-DOSE CUPS PO PRN (22:03)
[2021-10-05] MEDS: INSULIN SLIDING SCALE (NOVOLOG) 1 VIAL SQ SCH ×2 (06:16→12:08)
[2021-10-05] MEDS: LEVOTHYROXINE NA 50 MCG TABLET (FP) PO SCH (06:19)
[2021-10-05] MEDS: INSULIN (LEVEMIR) 100 UNITS/ML UNITS SQ SCH (06:19)
[2021-10-05] MEDS: Insulin (LOG) Aspart 100 UNITS/ML VIAL SQ SCH ×2 (06:19→12:10)
[2021-10-05 08:52] LABS: ALBUMIN 2.6 g/dl (3.4-5.0); BLOOD UREA NITROGEN 22.2 mg/dL (7-18); CALCIUM 8.7 mg/dL (8.5-10.1)
[2021-10-05 08:55] LABS: CREATININE 0.8 mg/dL (0.55-1.3)
[2021-10-05 08:56] LABS: BILIRUBIN,TOTAL 0.5 mg/dL (0.2-1)
[2021-10-05 08:57] LABS: TOT PROT 5.8 g/dl (6.4-8.2)
[2021-10-05] MEDS: ASCORBIC ACID 500 MG TABLET (FP) PO SCH (10:40)
[2021-10-05] MEDS: ZINC SULFATE 220 MG CAPSULE (FP) PO SCH (10:40)
[2021-10-05] MEDS: PANTOPRAZOLE 40 MG TABLET PO SCH (10:40)
[2021-10-05] MEDS: DEXAMETHASONE SOD PHOSPHATE 4 MG/1 ML VIAL IVPUSH SCH (10:40)
[2021-10-05] MEDS: BUDESONIDE/FORMETEROL FUMARATE 160/4.5 mcg INHALER IH SCH (10:40)
[2021-10-05] MEDS: CHOLECALCIFEROL (VIT D3) 1,000 UNIT (25 MCG) TABLET PO SCH (10:40)
[2021-10-05] MEDS: ENOXAPARIN NA (PORCINE) 40 MG/0.4 ML DISP.SYRIN SQ SCH (10:40)
[2021-10-05 14:07] VITALS: BP 122/67; TEMP 97.7
[2021-10-05 14:47] VITALS: PULSE 84
[2021-10-05] MEDS ORDERED: ENOXAPARIN NA (PORCINE) 40 MG/0.4 ML DISP.SYRIN SQ SCH (22:00)
== END 2021-10-05 17:48 | disposition home or self-care (01) | DRG 137 ==
LOC: JER 15:13 → JERBED 20:32 → J4S 09-30 10:06
PROVIDERS: ADMIT Hospitalist; ATTEND Internal Medicine
PROC: XW033E5 Introduction of Remdesivir Anti-infective into Peripheral Vein, Percutaneous Approach, New Technology Group 5 (ICD-10-PCS; principal; 2021-09-29)
DX: U07.1 COVID-19 (principal); J12.82 Pneumonia due to coronavirus disease 2019; K21.9 Gastro-esophageal reflux disease without esophagitis; M54.50 Low back pain, unspecified; E03.9 Hypothyroidism, unspecified; D64.9 Anemia, unspecified; E66.01 Morbid (severe) obesity due to excess calories; Z68.42 Body mass index [BMI] 45.0-49.9, adult; J96.01 Acute respiratory failure with hypoxia; R00.0 Tachycardia, unspecified; E11.65 Type 2 diabetes mellitus with hyperglycemia; R19.7 Diarrhea, unspecified
CPT/HCPCS: 36415; 71045-TC-FY; 71046-TC-FY; 80048; 80053; 82728; 82962; 83036; 83735; 84100; 84443; 85025; 85027; 85379; 85610; 85651; 85730; 86140; 86480; 86705; 87517; 87804; 93005; 93010; 94010; 94761; 99285-25; C9399; C9803-CS; J1100; U0003; U0005

== ENCOUNTER 2022-05-09 18:10 | Emergency (ER) | payer OTHER ==
[2022-05-09 18:26] VITALS: BP 143/88; PULSE 94; RESP 16; TEMP 99.3; BMI 35.4
[2022-05-09] MEDS ORDERED: diazePAM 5 MG TABLET PO ONE (18:55)
[2022-05-09] MEDS ORDERED: KETOROLAC TROMETHAMINE 30 MG/1 ML VIAL IM ONE (18:55)
[2022-05-09] MEDS ORDERED: diazePAM 5 MG TABLET ONE (19:07)
[2022-05-09] MEDS ORDERED: KETOROLAC TROMETHAMINE 30 MG/1 ML VIAL ONE (19:07)
== END 2022-05-09 21:09 | disposition home or self-care (01) ==
LOC: FER 18:10
PROC: 3E0233Z Introduction of Anti-inflammatory into Muscle, Percutaneous Approach (ICD-10-PCS; principal; 2022-05-09)
DX: R10.31 Right lower quadrant pain (principal)
CPT/HCPCS: 73502-TC-RT-FY; 74176-TC; 96372; 99284-25

== ENCOUNTER 2024-03-06 20:42 | Emergency (ER) | payer OTHER ==
[2024-03-06 20:59] VITALS: BP 148/89; PULSE 90; RESP 18; TEMP 97.5; BMI 35.5
[2024-03-06] MEDS ORDERED: AMOX TR/POT CLAV 875MG/125MG TABLETS (FP) ONE (21:05)
[2024-03-06] MEDS: AMOX TR/POT CLAV 875MG/125MG TABLETS (FP) PO ONE (21:11)
== END 2024-03-06 21:15 | disposition home or self-care (01) ==
LOC: FER 20:42
DX: R59.0 Localized enlarged lymph nodes (principal); M54.2 Cervicalgia; R51.9 Headache, unspecified
CPT/HCPCS: 99283-25

== ENCOUNTER 2024-04-02 20:03 | Emergency (ER) | payer OTHER ==
[2024-04-02 20:25] VITALS: BP 160/84; PULSE 91; RESP 18; TEMP 98.1; BMI 36.3
[2024-04-02] MEDS ORDERED: KETOROLAC TROMETHAMINE 60 MG/2 ML VIAL ONE (21:01)
[2024-04-02] MEDS ORDERED: predniSONE 20 MG TABLET (UD) ONE (21:02)
[2024-04-02] MEDS: predniSONE 20 MG TABLET (UD) PO ONE (21:08)
[2024-04-02] MEDS: KETOROLAC TROMETHAMINE 60 MG/2 ML VIAL IM ONE (21:08)
== END 2024-04-02 21:49 | disposition home or self-care (01) ==
LOC: FER 20:03
PROC: 3E0133Z Introduction of Anti-inflammatory into Subcutaneous Tissue, Percutaneous Approach (ICD-10-PCS; principal; 2024-04-02)
DX: M25.511 Pain in right shoulder (principal)
CPT/HCPCS: 73030-TC-RT-FY; 99284-25

== ENCOUNTER 2025-02-21 11:56 | Emergency (ER) | payer OTHER ==
[2025-02-21 12:04] VITALS: RESP 18; TEMP 98.2; BMI 41.1
[2025-02-21] MEDS ORDERED: ACETAMINOPHEN INJECTION 100 ML ONE (12:40)
[2025-02-21] MEDS: morphine CARPU-JECT 2 MG/1 ML DISP.SYRIN IVPUSH ONE (12:50)
[2025-02-21] MEDS: ACETAMINOPHEN 1000 MG/100 ML BAG IVPB ONE (12:52)
[2025-02-21 13:04] LABS: ABSOLUTE IMMATURE GRANULOCYTES 0.01 x10^3/uL (0.0-0.031); BASOPHILS # 0.06 x10^3/uL (0.01-0.08); EOSINOPHIL % 2.2 % (0.7-5.8); EOSINOPHILS # 0.22 x10^3/uL (0.04-0.36); HEMATOCRIT 40.8 % (34.1-44.9); HEMOGLOBIN 13.8 g/dL (11.2-15.7); MCHC 33.8 g/dl (32.2-35.5); MEAN CELL VOLUME 86.1 fl (79.4-94.8); MEAN PLT VOLUME 10.5 fl (9.4-12.3); MONOCYTE # 1.11 x10^3/uL (0.24-0.86); MONOCYTE % 11.2 % (4.7-12.5); PLATELET COUNT 285 x10^3/uL (182-369); RDW 12.6 % (12.3-16.6)
[2025-02-21 13:28] LABS: ALBUMIN 4.7 g/dl (3.4-5.0); ALK PHOS 87 U/L (45-117); ANION GAP 10 mmol/L (4-13); BILIRUBIN,TOTAL 1.4 mg/dl (0.2-1); CALCIUM 9.7 mg/dl (8.5-10.1); CHLORIDE 100 mmol/L (98-107); CO2 26 mmol/L (21-32); CREATININE 0.9 mg/dl (0.6-1.3); GLUCOSE,RANDOM 103 mg/dl (74-106); POTASSIUM 4.2 mmol/L (3.5-5.1); SGOT/AST 16 U/L (15-37); SGPT/ALT 24 U/L (7-52); SODIUM 136 mmol/L (136-145); TOT PROT 7.2 g/dl (6.4-8.2)
[2025-02-21] MEDS ORDERED: MAG HYDROX/AL HYDROX/SIMETH 30 ML UNIT-DOSE CUP ONE (16:02)
[2025-02-21] MEDS: MAG HYDROX/AL HYDROX/SIMETH 30 ML UNIT-DOSE CUP PO ONE (16:04)
[2025-02-21 16:11] LABS: HCV DIAGNOSTIC IN-HOUSE W/RFLX NON-REACTIVE (NONREACTIVE); HIV INTERPRETATION NEGATIVE (NEGATIVE)
[2025-02-21] MEDS ORDERED: diazePAM 2 MG TABLET ONE (16:35)
[2025-02-21] MEDS: diazePAM 2 MG TABLET PO ONE (16:42)
[2025-02-21] MEDS ORDERED: KETOROLAC TROMETHAMINE 15 MG/ML VIAL ONE (16:49)
[2025-02-21] MEDS: KETOROLAC TROMETHAMINE 15 MG/ML VIAL IVPUSH ONE (16:51)
[2025-02-21 16:56] VITALS: BP 98/58; PULSE 81
[2025-02-21] MEDS ORDERED: METHOCARBAMOL 500 MG TABLET PO SCH (22:00)
== END 2025-02-21 17:25 | disposition home or self-care (01) ==
LOC: FER 11:56
PROC: 3E033NZ Introduction of Analgesics, Hypnotics, Sedatives into Peripheral Vein, Percutaneous Approach (ICD-10-PCS; principal; 2025-02-21)
PROC: 3E0333Z Introduction of Anti-inflammatory into Peripheral Vein, Percutaneous Approach (ICD-10-PCS; 2025-02-21)
PROC: 3E033NZ Introduction of Analgesics, Hypnotics, Sedatives into Peripheral Vein, Percutaneous Approach (ICD-10-PCS; 2025-02-21)
DX: M54.9 Dorsalgia, unspecified (principal); R10.9 Unspecified abdominal pain; N83.202 Unspecified ovarian cyst, left side
CPT/HCPCS: 36415; 74176-TC; 76705-TC; 76775-TC; 80053; 81003; 83690; 85025; 86140; 86803; 87389; 93005; 99285-25; J0131